=== PATIENT | female | born 1930 | race Caucasian/White ===

== ENCOUNTER 2018-07-09 12:02 | Inpatient (IN) | payer MEDICARE, MEDICAID ==
--- NOTE | 2018-07-09 12:32 | ED ---
Shortness of Breath - HPI Summary HPI Summary: This patient is an 87 year old female presenting to [facility] with a chief complaint of SOB since yesterday. The patient states she currently has a cold and is congested. She reports coughing all night, producing a yellow sputum. The patient uses Oxygen at home. She reports chest pressure. She rates her pain 3/10 in severity. Albuterol HFA INHALER* [Ventolin HFA Inhaler*] 1 puff INH SEE INSTRUCTIONS PRN 05/08/18 [History Confirmed 05/08/18] Amlodipine Besylate [Norvasc] 10 mg PO DAILY 05/08/18 [History Confirmed ] Atorvastatin* [Lipitor 20 MG*] 20 mg PO DAILY 05/08/18 [History Confirmed ] Atorvastatin* [Lipitor 40 MG*] 40 mg PO 2100 05/08/18 [History Confirmed ] Biotin 5,000 mcg PO DAILY 05/08/18 [History Confirmed 05/08/18] Calcium Carbonate/Vitamin D3 [Calcium 600 + Vit D Tablet] 1 each PO DAILY [History Confirmed 05/08/18] Cholecalciferol (Vitamin D3) [Vitamin D3] 1,000 unit PO DAILY 05/08/18 [History Confirmed 05/08/18] Citalopram TAB* [Celexa TAB*] 20 mg PO DAILY 05/08/18 [History Confirmed ] Docusate Sodium [Dok] 100 mg PO BID 05/08/18 [History Confirmed 05/08/18] Hydrocodone/Acetaminophen [Hydrocodone-Acetamin 7.5-300] 1 each PO Q6HR [History Confirmed 05/08/18] Isosorbide Mononitrate [Isosorbide Mononitrate ER] 30 mg PO DAILY 05/08/18 [ History Confirmed 05/08/18] Magnesium Oxide [Magnesium] 250 mg PO DAILY 05/08/18 [History Confirmed 05/08/18 ] Metoprolol Succinate 50 mg PO DAILY 05/08/18 [History Confirmed 05/08/18] Nortriptyline CAP* [Nortriptylline CAP*] 10 mg PO BEDTIME 05/08/18 [History Confirmed 05/08/18] Pantoprazole TAB (NF) [Protonix TAB (NF)] 20 mg PO DAILY 05/08/18 [History Confirmed 05/08/18] Potassium Chloride [K-Tab ER] 10 meq PO DAILY 05/08/18 [History Confirmed ] Tiotropium [place] [Spiriva Respimat] 1 puff PO SEE INSTRUCTIONS PRN 05/08/18 [ History Confirmed 05/08/18] - History of Current Complaint Chief Complaint: EDShortnessOfBreath Time Seen by Provider: 07/09/18 12:26 Hx Obtained From: Patient Onset/Duration: Gradual Onset Associated Signs & Symptoms: Cough (Productive), Nasal Congestion - Allergy/Home Medications Allergies/Adverse Reactions: Allergies Allergy/AdvReac Type Severity Reaction Status Date / Time No Known Allergies Allergy Verified 05/08/18 09:55 Home Medications: Home Medications Citalopram TAB* [CeleXA TAB*] 20 mg PO DAILY 07/09/18 [History Confirmed ] Isosorbide Mononitrate ER TAB* [Imdur ER TAB*] 30 mg PO DAILY 07/09/18 [History Confirmed 07/09/18] Metoprolol Succinate XL TAB* [Toprol XL TAB*] 50 mg PO DAILY 07/09/18 [History Confirmed 07/09/18] Nortriptyline CAP* [Pamelor CAP*] 10 mg PO BEDTIME 07/09/18 [History Confirmed 07/09/18] Potassium Chlor TAB* [Klor Con ER TAB*] 10 meq PO DAILY 07/09/18 [History Confirmed 07/09/18] amLODIPine TAB* [Norvasc 5 mg TAB*] 10 mg PO DAILY 07/09/18 [History Confirmed 07/09/18] PMH/Surg Hx/FS Hx/Imm Hx Cardiovascular History: Reports: Hx Hypertension Respiratory History: Reports: Hx Asthma, Hx Pneumonia Infectious Disease History: No Infectious Disease History: Denies: Traveled Outside the [place] in Last 30 Days - Family History Known Family History: Positive: Cardiac Disease - Social History Alcohol Use: None Smoking Status (MU): Former Smoker Review of Systems Positive: Nasal Discharge Positive: Chest Pain Positive: Shortness Of Breath, Cough All Other Systems Reviewed And Are Negative: Yes Physical Exam - Summary Physical Exam Summary: Appearance: The patient is well-nourished in no acute distress and in no acute pain. Skin: The skin is warm and dry and skin color reflects adequate perfusion. HEENT: The head is normocephalic and atraumatic. The pupils are equal and reactive. The conjunctivae are clear and without drainage. Nares are patent and without drainage. Mouth reveals moist mucous membranes and the throat is without erythema and exudate. The external ears are intact. The ear canals are patent and without drainage. The tympanic membranes are intact. Neck: The neck is supple with full range of motion and non-tender. There are no carotid bruits. There is no neck vein distension. Respiratory: Chest is non-tender. Expiratory wheezes in all lung shipley. Increased expiratory time. Cardiovascular: Heart is regular rate and rhythm. Soft ejection systolic murmur. There is no peripheral edema and pulses are symmetrical and equal. Abdomen: The abdomen is soft and non-tender. There are normal bowel sounds heard in all four quadrants and there is no organomegaly palpated. Musculoskeletal: There is no back tenderness noted. Extremities are non-tender with full range of motion. There is good capillary refill. There is no peripheral edema or calf tenderness elicited. Neurological: Patient is alert and oriented to person, place and time. The patient has symmetrical motor strength in all four extremities. Cranial nerves are grossly intact. Deep tendon reflexes are symmetrical and equal in all four extremities. Psychiatric: The patient has an appropriate affect and does not exhibit any anxiety or depression. Triage Information Reviewed: Yes Vital Signs On Initial Exam: Initial Vitals Temp Pulse Resp BP Pulse Ox 97.8 F 70 18 173/89 98 07/09/18 12:02 07/09/18 12:02 07/09/18 12:02 07/09/18 12:02 07/09/18 12:02 Vital Signs Reviewed: Yes Diagnostics - Vital Signs Vital Signs Temp Pulse Resp BP Pulse Ox 07/09/18 12:02 97.8 F 70 18 173/89 98 - Laboratory Result Diagrams: 07/09/18 12:43 07/09/18 16:27 Lab Statement: Any lab studies that have been ordered have been reviewed, and results considered in the medical decision making process. - Radiology CXR Radiology Interpretation Completed By: Radiologist Summary of Radiographic Findings: Probable bronchopneumonia superimposed on chronic obstructive pulmonary disease. ED Provider has reviewed this report. - EKG 1209 Cardiac Rate: NL EKG Rhythm: Sinus Rhythm - 75 BPM Ectopy: PVCs Summary of EKG Findings: Controlled ventricular response. 1247 Cardiac Rate: NL EKG Rhythm: Atrial Fibrillation - 67 BPM Ectopy: PVCs Summary of EKG Findings: Controlled ventricular response. PVCs. Course/Dx - Course Course Of Treatment: Ms. Sumner presented complaining that for the last couple of days she's been coughing a lot bringing up some yellow sputum. She short of breath with any attempt to exert. She feels okay lying in bed on oxygen. She did get a nebulizer treatment on the way in and she uses nebulizers at home as well as oxygen. She was nontoxic in appearance with stable vitals and was treated with additional nebulizer and steroids. I did give her a little bit of Lasix as she had a small amount of JVD and a mildly elevated BNP. On re-eval she states that she is not any better and needs to stay in the hospital. I asked the hospitalist to consult on her. - Diagnoses Provider Diagnoses: Respiratory distress - Physician Notifications Discussed Care of Patient With: Clarita Thornton - Hospitalist Instructed by Provider To: Admit As Inpatient Discharge - Sign-Out/Discharge Documenting (check all that apply): Patient Departure - Admission - Discharge Plan Condition: Stable Disposition: ADMITTED TO [facility] - Billing Disposition and Condition Condition: STABLE Disposition: Admitted to [facility] - Attestation Statements Document Initiated by Jacqueline: Yes Documenting Scribe: Valdo Yang Provider For Whom Jacqueline is Documenting (Include Credential): MD Harpreet Nickibfilippo Attestation: Valdo Lowe scribed for Harsh Rios MD on 07/09/18 at 1954. Scribe Documentation Reviewed: Yes Provider Attestation: The documentation as recorded by the Valdo henderson accurately reflects the service I personally performed and the decisions made by me, Harsh Rios MD Status of Scribe Document: Viewed
[2018-07-09] MEDS ORDERED: methylPREDNISolone 125 MG* 2 ML VIAL IV ONE (12:34)
[2018-07-09] MEDS ORDERED: Albuterol/Ipratropium NEB.SOL* Albuterol 2.5 MG/Ipratropium 0.5 MG 3 ML INH ONE (12:34)
[2018-07-09] MEDS ORDERED: NIFEdipine ER TAB* 30 MG PO ONE (13:07)
[2018-07-09] MEDS ORDERED: Metoprolol Succinate XL TAB* 50 MG PO ONE (13:07)
[2018-07-09 13:11] LABS: ABS Eosinophils 0.1 10^3/ul (0-0.6); ABS Lymphocytes 0.8 10^3/ul (1.0-4.8); ABS Neutrophils 3.3 10^3/ul (1.5-7.7); Eosinophil % 2.5 %; Hematocrit 36 % (35-47); Hemoglobin 11.9 g/dL (12.0-16.0); Lymphocyte % 15.6 %; Mean Corpuscular HGB Conc 33 g/dL (31-36); Mean Corpuscular Hemoglobin 30 pg (27-31); Mean Corpuscular Volume 92 fL (80-97); Mean Platelet Volume 7.2 fL (7.4-10.4); Platelet Count 160 10^3/uL (150-450); Red Blood Count 3.97 10^6 /uL (3.70-4.87); Red Cell Distribution Width 14 % (10.5-15); White Blood Count 5.2 10^3/uL (3.5-10.8)
[2018-07-09 13:20] LABS: INR 1.06 (0.82-1.09)
[2018-07-09 13:26] LABS: Troponin I 0.01 ng/mL (<0.04)
[2018-07-09 13:33] LABS: Albumin 4.3 g/dL (3.2-5.2); Albumin/Globulin Ratio 1.4 (1-3); BUN/Creatinine Ratio 17.2 (8-20); C Reactive Protein 5.13 mg/L (<8.01); Calcium 10.2 mg/dL (8.6-10.3); EGFR African American 64.2 (>60); EGFR Non-African American 53.1 (>60); Potassium 3.8 mmol/L (3.5-5.0); Total Bilirubin 0.5 mg/dL (0.2-1.0); Total Protein 7.3 g/dL (6.4-8.9)
[2018-07-09] MEDS ORDERED: Furosemide IV* 10 MG/ML 2 ML VIAL (20 MG) IV SLOW PU ONE (13:39)
[2018-07-09] MEDS ORDERED: Albuterol/Ipratropium NEB.SOL* Albuterol 2.5 MG/Ipratropium 0.5 MG 3 ML INH PRN (16:07)
[2018-07-09] MEDS ORDERED: Acetaminophen TAB* 325 MG PO PRN ×2 (16:07→17:43)
[2018-07-09 16:08] LABS: Magnesium 1.7 mg/dL (1.9-2.7)
[2018-07-09] MEDS ORDERED: Magnesium Sulfate 2 GM IV* 2 GM/50 ML BAG IVPB ONE (16:11)
[2018-07-09] MEDS: Enoxaparin(*) 40 MG/0.4 ML SYR SUBCUT SCH (16:40)
[2018-07-09 16:57] LABS: BUN/Creatinine Ratio 15.8 (8-20); Calcium 10.3 mg/dL (8.6-10.3); EGFR African American 54.6 (>60); EGFR Non-African American 45.1 (>60); Magnesium 1.6 mg/dL (1.9-2.7); Potassium 3.5 mmol/L (3.5-5.0)
[2018-07-09 17:31] LABS: Folate 12.82 ng/mL (>3.99)
[2018-07-09] MEDS ORDERED: Potassium Chlor TAB* 20 MEQ TAB.ER PO ONE (17:40)
--- NOTE | 2018-07-09 19:21 | HP ---
CC: Dr. Irma Garcia; Carlos Ortiz NP * HISTORY AND PHYSICAL: DATE OF ADMISSION: 07/09/18 PRIMARY CARE PROVIDERS: Dr. Irma Garcia and Carlos Ortiz NP HEALTHCARE PROXY: Elizabeth, her daughter, cellphone [phone], home [phone]. CODE STATUS: Full code. CHIEF COMPLAINT: Acute shortness of breath and cough. HISTORY OF PRESENT ILLNESS: Ms. Sumner is an 87-year-old woman with a history of COPD, on home O2 at 3 L; heart failure; CAD/TN without intervention; anxiety and depression; and recent right hip hemiarthroplasty with right total knee replacement, with periprosthetic fracture of her right distal femur; who is presenting with acute onset of cough and shortness of breath. She reports that she was in her usual state of poor health with baseline dyspnea on exertion, but able to walk with a walker from room to room in her home, until last night when she began to experience a cough productive of thick sputum. She states that the cough was persistent and associated with worsening shortness of breath at rest. Her exercise tolerance decreased to a few steps before needing to stop. This shortness of breath was associated with a chest pressure across the entire front of her chest that radiated to the front of both of her shoulders. She also reports a subjective fever, although she did not measure her temperature at home, and she also reports having chills, but no diaphoresis. She denies recent upper respiratory infectious symptoms such as sore throat or sneezing. She also denies any recent sick contacts. She denies abdominal pain, nausea, vomiting, constipation, diarrhea, or dysuria. Of note, the patient reports history of needing to use a water pill, although she states that she has not been on a water pill for many weeks. It is unclear if she has a history of heart failure, although she does report history of a heart attack with "" bottom of her heart. In the emergency room, the patient was afebrile with heart rate in the 70s and normal blood pressure with oxygen requirements at baseline, noted to be saturating upper 90s on her home 3 L nasal cannula. Chest x-ray was performed and while Radiology was concerned for broncho-lobar pneumonia, ER attending read was more concerned for increased fluid, so the patient was given nebulizers , furosemide 20 mg IV, methylprednisolone 125 mg IV. It appears she was also given metoprolol and nifedipine. She had continued significant dyspnea on exertion, so the hospitalist service was called for a possible admission to the medical service for further management. PAST MEDICAL HISTORY: 1. Coronary artery disease, history of TN in unknown year without stent or other intervention. The patient's daughter reports the "bottom of her heart is ." Possible ischemic cardiomyopathy with reduced ejection fraction. 2. COPD, on 3 L nasal cannula at home. 3. Anxiety and depression. 4. A fall in October 2017 with subsequent broken hip and distal femur, now status post right hip hemiarthroplasty, right knee total knee replacement, with periprosthetic fracture of the right distal femur. This occurred when she was living in [place]. 5. Fall complicated by right hip pubic rami fracture on 05/27/18, nondisplaced , not requiring surgery, will be weightbearing as tolerated with a walker. The patient is following with Dr. Adkins. 6. Hypertension. 7. Chronic low back pain. 8. Psoriasis. 9. Polypharmacy HOME MEDICATIONS: 1. Nortriptyline 10 mg nightly. 2. Metoprolol succinate 50 mg daily. 3. Atorvastatin 40 mg nightly. 4. Amlodipine 10 mg nightly. 5. Potassium chloride 10 mEq daily. 6. Isosorbide 30 mg daily. 7. Pantoprazole 20 mg daily. 8. Citalopram 20 mg daily. Furosemide and inhalers are noted in her outpatient notes but patient is unaware. ALLERGIES: No known drug allergies. FAMILY HISTORY: Both parents with heart disease. Mother with stroke. SOCIAL HISTORY: The patient quit tobacco in 2003. She has a [id number] smoking history. She denies alcohol or other drugs. She used to work at [employer], but is now retired. She lives with her daughter, Elizabeth, who is her power of employee benefits attorney, and her son-in-law. REVIEW OF SYSTEMS: A complete 10-point review of systems was performed and pertinent positives and negatives are listed in the HPI. PHYSICAL EXAMINATION GENERAL: Chronically ill-appearing, frail elderly woman, in no acute distress, without increased work of breathing. VITAL SIGNS: T-max 99.5, heart rate 70s, blood pressure 161/67, respiratory rate 12, oxygen saturation 95% on 2 L. HEENT: Moist mucous membranes. NECK: Supple. Full range of motion without pain. No JVD. LUNGS: Diffuse wheeze with crackles at both bases, prolonged expiratory phase. HEART: Regular rate and rhythm. No murmurs, gallops, or rubs. ABDOMEN: Soft, nontender, nondistended. EXTREMITIES: Lower extremities warm and well perfused without evidence of edema. DP pulses 2+ bilaterally. NEURO: A and O x3. 5/5 strength in the upper and lower extremities. CN II through XII intact. DIAGNOSTIC STUDIES/LAB DATA: Hemoglobin 11.9, normocytic at baseline. Creatinine 1.14, at baseline. BNP 709. B12 and folate are pending. Chest x-ray with probable bronchopneumonia superimposed on chronic obstructive pulmonary disease. ASSESSMENT AND PLAN: The patient is an 87-year-old woman with chronic obstructive pulmonary disease, on home O2; coronary artery disease with possible ischemic cardiomyopathy and reduced ejection fraction; anxiety and depression; who is presenting with acute onset of dyspnea on exertion, shortness of breath at rest, and productive cough. 1. Chronic obstructive pulmonary disease exacerbation. With increased cough, HONG, and sputum production. The patient is not currently requiring more oxygen than her home supplements. As she is without a fever or white blood cell count , I do not think that a bacterial pneumonia is the cause of her CPPD exacerbation. For treatment of this exacerbation, she will be continued on a steroid burst, but we will switch to oral steroids. Continue DuoNebs as needed for shortness of breath and can switch to albuterol nebulizer tomorrow. The patient denies being on inhalers at home, so medication nonadherence could be the cause of this exacerbation. In an outpatient note from last month, she was prescribed Incruse Ellipta, Breo Ellipta, and Spiriva. I will continue triple therapy while she is admitted with Breo Ellipta and Spiriva. Although infection is lower on my differential, I have also ordered blood and sputum cultures, urine antigens for legionella and Strep pneumo, and a procalcitonin. Low suspicion at this time for pulmonary embolism, but given the patient's recent lower extremity fracture, this should also remain on the differential at this time. We will order TTE to examine for volume component to respiratory symptoms. 2. Coronary artery disease with possible ICM. We will continue the patient's home atorvastatin 40 mg. We will hold the patient's home 20 mg of atorvastatin. Unclear why she is on 2 different pills and the patient does not know. Again concern for polypharmacy and medication mismanagement in this patient. Can continue metoprolol succinate 50 mg daily and isosorbide mononitrate 30 mg p.o. daily. We will order a TTE to assess for heart failure given history of being on diuretics. Of note, the patient is status post furosemide 20 IV in the emergency department. 3. Recent right hip and knee replacements with recent pubic rami fracture after falls. We will manage the patient's pain with high-dose Tylenol for mild pain and [place] for [id number] pain. Also, we will order physical therapy evaluation. 4. Anxiety and depression. We will continue the patient's home citalopram 20 mg daily and nortriptyline 10 mg nightly. 5. Hypertension. Continue home amlodipine 10 mg nightly. 6. Gastroesophageal reflux disease. Continue home PPI. 7. DVT prophylaxis: Initiate Lovenox subcu. 8. Code status: The patient is a full code. TIME SPENT: Approximately 75 minutes was spent on admission of this patient, more than half of which was spent at bedside for interview and exam. [id number]/[facility] #: [id number] AGATHA
[2018-07-09] MEDS ORDERED: Magnesium Sulfate 1 GM IV* 1 GM/100 ML BAG IV ONE (19:30)
[2018-07-09] MEDS: Fluticasone/Vilanterol MDI(NF) 100/25 MDI INH SCH (20:08)
[2018-07-09] MEDS: Nortriptyline CAP* 10 MG PO SCH (20:55)
[2018-07-09] MEDS: HYDROcodone/ACETAMIN 5-325 MG* 1 TAB PO PRN (20:55)
[2018-07-10 05:57] LABS: ABS Lymphocytes 0.8 10^3/ul (1.0-4.8); ABS Monocytes 0.4 10^3/ul (0-0.8); ABS Neutrophils 2.7 10^3/ul (1.5-7.7); Hematocrit 36 % (35-47); Lymphocyte % 19.4 %; Mean Corpuscular HGB Conc 34 g/dL (31-36); Mean Corpuscular Hemoglobin 30 pg (27-31); Mean Corpuscular Volume 90 fL (80-97); Mean Platelet Volume 7.3 fL (7.4-10.4); Platelet Count 162 10^3/uL (150-450); Red Blood Count 3.94 10^6 /uL (3.70-4.87); Red Cell Distribution Width 14 % (10.5-15); White Blood Count 3.9 10^3/uL (3.5-10.8)
[2018-07-10 06:17] LABS: BUN/Creatinine Ratio 21.1 (8-20); Calcium 10.2 mg/dL (8.6-10.3); EGFR African American 67.3 (>60); EGFR Non-African American 55.6 (>60); Magnesium 2.2 mg/dL (1.9-2.7); Potassium 4.5 mmol/L (3.5-5.0)
--- NOTE | 2018-07-10 07:24 | PN ---
Subjective Date of Service: 07/10/18 Interval History: HD # 2 on 07/10 87 yo F COPD, CAD, ischemic cardiomyopathy, HfREF 35-45%, anxiety , depression, with recent falls and fracture (relocated from [place] in Nov 2017) who presented with SOB Overnight no acute events, VSS, mild HTN Labs: Unremarkable 07/10 This morning feeling fatigued, still SOB and HONG. Discussed dx, HFrEF, COPD, she is fairly self aware and does not yet feel back at her baseline. No CP, no dizziness, appetite Ok and voiding normally. We spend some time to discuss GOC as well, she is clearly DNR/DNI "nothing heroic" and "when its my time I want to be with Rey" reviewed specifics clear on not reversing a natural process. Objective Active Medications: Acetaminophen (Tylenol Tab*) 975 mg PO Q8H PRN PRN Reason: FEVER/PAIN Hydrocodone Bitart/Acetaminophen ([place] 5-325 Tab*) 1 tab PO Q6H PRN PRN Reason: PAIN Last Admin: 07/09/18 20:55 Dose: 1 tab Albuterol/Ipratropium (Duoneb (Albuterol 2.5 Mg/Ipratropium 0.5 Mg)) 1 neb INH [id number] AWAKE PRN PRN Reason: sob/wheezing Amlodipine Besylate (Norvasc Tab*) 10 mg PO DAILY [facility] Atorvastatin Calcium (Lipitor*) 40 mg PO DAILY [facility] Citalopram Hydrobromide (Celexa Tab*) 20 mg PO DAILY [facility] Device (Tiotropium Inhaler Device*) 1 each INH .USE w/ SPIRIVA CAPS ONE Stop: 07/10/18 09:01 Enoxaparin Sodium (Lovenox(*)) 40 mg SUBCUT Q24H ALISHA Last Admin: 07/09/18 16:40 Dose: 40 mg Fluticasone/Vilanterol (Breo Ellipta Mdi 100/25(Nf)) 1 puff INH DAILY [facility] Last Admin: 07/09/18 20:08 Dose: Not Given Isosorbide Mononitrate (Imdur Er Tab*) 30 mg PO DAILY [facility] Metoprolol Succinate (Toprol Xl Tab*) 50 mg PO DAILY [facility] Nortriptyline HCl (Pamelor Cap*) 10 mg PO BEDTIME ALISHA Last Admin: 07/09/18 20:55 Dose: 10 mg Pantoprazole Sodium (Protonix Tab*) 40 mg PO DAILY [facility] Potassium Chloride (Klor Con Er Tab*) 10 meq PO DAILY [facility] Prednisone (Deltasone Tab*) 40 mg PO DAILY [facility] Stop: 07/13/18 09:01 Tiotropium [place] (Spiriva Cap.Inh*) 1 cap INH DAILY [facility] Vital Signs - 8 hr 07/09/18 07/09/18 07/10/18 23:18 23:33 04:17 Temperature 98.2 F 97.3 F Pulse Rate 67 63 Respiratory 20 16 16 Rate Blood Pressure 144/62 154/79 (mmHg) O2 Sat by Pulse 96 96 Oximetry Oxygen Devices in Use Now: Nasal Cannula Appearance: Pleasant woman in NAD Ears/Nose/Mouth/Throat: NL Teeth, Lips, Gums, Mucous Membranes Moist Neck: NL Appearance and Movements; NL JVP, Trachea Midline Respiratory: Symmetrical Chest Expansion and Respiratory Effort, - - Crackles blt in bases, E wheeze and rhonchi Cardiovascular: RRR, - - Diffuse ROB radiates to carotids across precodium Abdominal: NL Sounds; No Tenderness; No Distention, No Hepatosplenomegaly Lymphatic: No Cervical Adenopathy Extremities: No Edema Skin: No Rash or Ulcers Neurological: Alert and Oriented x 3 Result Diagrams: 07/10/18 05:29 07/10/18 05:29 Microbiology and Other Data: Microbiology 07/09/18 21:36 Legionella Urinary Antigen - Final Urine Negative Legionella Antigen Streptococcus pneumoniae Ag Screen - Final Negative S. pneumo Antigen Assess/Plan/Problems-Billing Assessment: 87F COPD on home O2 3L, CAD, ischemic cardiomyopathy, HFrEF, anxiety , depression, polypharmacy with recent falls/fracture with ortho intervention who presented with SOB thought to be COPD exacerbation and acute exacerbation of CHF - Patient Problems (1) Shortness of breath Current Visit: Yes Status: Acute Code(s): R06.02 - SHORTNESS OF BREATH SNOMED Code(s): 933369457 Comment: - Ddx as above, seems most c/w mixed acute on chronic CHF and COPD exacerbation, though radiograph suggests ? consolidation, no WBC, no fever, not clinically requiring more than her baselien O2 needs procalcitonin pending. - Awaiting TTE to determine EF with known hx of CAD - Continue treatment for COPD exacerbation with triple therapy LAMA, LABA, ICS and PRN CECILE, also oral prednisone Day 2/5 on 07/10 - Continue diuresis while awaiting TTE, 20mg IV Lasix daily, will need to be d/ c on PO - Holding on abx (2) COPD (chronic obstructive pulmonary disease) Current Visit: Yes Status: Acute Code(s): J44.9 - CHRONIC OBSTRUCTIVE PULMONARY DISEASE, UNSPECIFIED SNOMED Code(s): 95922922 Comment: - Baseline requiring O2 - Rx inhalers from clinic (3) CAD (coronary artery disease) Current Visit: Yes Status: Acute Code(s): I25.10 - ATHSCL HEART DISEASE OF [place] CORONARY ARTERY W/O ANG PCTRS SNOMED Code(s): 66019343 Comment: - Known hx of CAD - Optimized on 2/2 prevention, statin, beta jared, not on Asa(?) unclear why not (4) Ischemic cardiomyopathy Current Visit: Yes Status: Acute Code(s): I25.5 - ISCHEMIC CARDIOMYOPATHY SNOMED Code(s): 481057925 Comment: - Statin, BB, also on isordil (5) Hypertension Current Visit: Yes Status: Acute Code(s): I10 - ESSENTIAL (PRIMARY) HYPERTENSION SNOMED Code(s): 72856413 Comment: - Continue home meds: Isordil, Amlodipine, Metoprolol (6) Anxiety Current Visit: Yes Status: Acute Code(s): F41.9 - ANXIETY DISORDER, UNSPECIFIED SNOMED Code(s): 63086900 Comment: - Nortptyline (7) DVT prophylaxis Current Visit: Yes Status: Acute Code(s): Z29.9 - ENCOUNTER FOR PROPHYLACTIC MEASURES, UNSPECIFIED SNOMED Code(s): 120817494 Comment: - Lovenox (8) Do not resuscitate Current Visit: Yes Status: Acute Status and Disposition: -Inpatient, PT pending
[2018-07-10] MEDS: Isosorbide Mononitrate ER TAB* 30 MG PO SCH (07:33)
[2018-07-10] MEDS: Atorvastatin* 40 MG TAB PO SCH (07:33)
[2018-07-10] MEDS: Pantoprazole TAB * 40 MG TAB PO SCH (07:33)
[2018-07-10] MEDS: Citalopram TAB* 20 MG PO SCH (07:34)
[2018-07-10] MEDS: predniSONE TAB* 20 MG PO SCH (07:34)
[2018-07-10] MEDS: Potassium Chlor TAB* 10 MEQ TAB.ER PO SCH (07:34)
[2018-07-10] MEDS: Metoprolol Succinate XL TAB* 50 MG PO SCH (07:34)
[2018-07-10] MEDS: amLODIPine TAB* 5 MG PO SCH (07:34)
[2018-07-10] MEDS ORDERED: Spiriva Inhaler DEVICE* 1 EACH DEVICE INH ONE (09:00)
[2018-07-10] MEDS: Tiotropium CAP.INH* CAP.INH/18 MCG (USE ORDER SET !) INH SCH (10:23)
[2018-07-10] MEDS: Fluticasone/Vilanterol MDI(NF) 100/25 MDI INH SCH (10:40)
[2018-07-10] MEDS: Furosemide IV* 10 MG/ML 2 ML VIAL (20 MG) IV SLOW PU SCH (12:39)
--- NOTE | 2018-07-10 15:40 | ECHO ---
*[facility]* [place] [address] Fax #: [phone] Transthoracic Echocardiogram Patient: Burak, Height: 63 in / 160 Crystal felder : 1930 Weight: 118.8 lb / Study Date: 07/10/2018 54 kg Age: 87 BP: 154 / 79 Gender: F BMI/BSA: 21.1 kg/m^2 HR: 75 bpm / 1.55 m^2 *Investigation Division Captain: * Katherine Gamez [facility] *Referring Physician: * Clarita Thornton *Reading Physician: * Zenaida Thibodeaux MD Indications: Resp Insufficiency. History: Coronary artery disease. PMH: COPD exacerbation. Risk factors: Former tobacco use. Hypertension. Hyperlipidemia. Conclusions Summary: 1. Procedure narrative: Image quality was fair. The study was technically limited due to chest wall deformity. 2. Left ventricle: The cavity size is below normal. Wall thickness is normal. Systolic function is moderately reduced. The estimated ejection fraction is 35-40%, by visual assessment. There is interventricular dyssynchrony and D shaped left ventricle c/w right ventricle overload. 3. Right ventricle: Systolic function is low normal. 4. Mitral valve: The findings are consistent with mild stenosis. There is mild regurgitation. The pressure half-time is 162 ms. The mean diastolic gradient is 3.0 mm Hg. The valve area by pressure half-time is 1.4 cm^2. The valve area (LVOT continuity) is 2.2 cm^2. 5. Aortic valve: The findings are consistent with mild to moderate stenosis, STEVE may be overestimated due to depressed ejection fraction. The peak systolic gradient is 14.0 mm Hg. The valve area by the velocity-time integral method is 1.34 cm^2. 6. Tricuspid valve: There is mild regurgitation. 7. Pulmonary arteries: The peak pressure during systole by Doppler is 24.0 mm Hg. 8. Compared with prior echocardiogram of 04/30/18, ejection fraction is stale, right ventricle function is stable, stable, prior mean gradient 13 mHg, STEVE 1.5 cm2, mitral stenosis noted on prior study, mean gradient 3.6 mmHg. Prior pulmonary artery pressure was 46 mmHg. Study data: Transthoracic echocardiogram. Procedure: Transthoracic echocardiography was performed. Image quality was fair. The study was technically limited due to chest wall deformity. Complete 2D, spectral Doppler, and color flow Doppler. Location: Echo laboratory. Patient status: Inpatient. Patient room number: 434. Rhythm: Normal sinus rhythm with PVC's. Findings Left ventricle: The cavity size is below normal. Wall thickness is normal. Systolic function is moderately reduced. The estimated ejection fraction is 35-40%, by visual assessment. There is interventricular dyssynchrony. Regional wall motion abnormalities: Moderate to severe global hypokinesis. Doppler parameters are consistent with abnormal left ventricular relaxation (grade 1 diastolic dysfunction). Right ventricle: The cavity size is normal. Wall thickness is mildly increased. The moderator band is in a normal position. Systolic function is low normal. Left atrium: The atrium is mildly dilated. Right atrium: The atrium is normal in size. Mitral valve: The leaflets are mildly thickened. Focal calcification. Of posterior annulus. The findings are consistent with mild stenosis. There is mild regurgitation. Aortic valve: Not well visualized. The valve is trileaflet. The findings are consistent with mild to moderate stenosis. There is trace regurgitation. Tricuspid valve: The leaflets are normal thickness. There is no evidence of stenosis. There is mild regurgitation. Pulmonic valve: The leaflets are normal thickness. There is no evidence of stenosis. There is trace regurgitation. Aorta: Ascending aorta: The ascending aorta is appears normal. Aortic arch: The aortic arch is appears normal. The aortic root is not dilated. Pericardium: A prominent pericardial fat pad is present. There is no pericardial effusion. Pulmonary arteries: Not well visualized. Systemic veins: Inferior vena cava: The vessel is normal in size. The respirophasic diameter changes are in the normal range (>= 50%). Measurements Left ventricle Value Ref Aortic valve Value Ref BRANDON, LAX (L) 3.0 cm 3.8 - 5.2 Tee diam, ED 1.9 cm ----- ESD, LAX 2.8 cm 2.2 - 3.5 Peak v, S 2.44 m/sec ----- FS, LAX (L) 6 % 27 - 45 VTI, S 46.7 cm ----- PW, ED, LAX 0.9 cm 0.6 - 0.9 Mean grad, S 14.0 mm Hg ----- FS (L) 6 % 27 - 45 Peak grad, S 14.0 mm Hg ----- PW, ED 0.9 cm 0.6 - 0.9 LVOT/AV, VTI ratio 0.43 ----- E', lat tee, TDI (L) 6.0 cm/sec >=10.0 STEVE, VTI 1.34 cm^2 --- -- E/e', lat tee, 13 STEVE, Vmax 1.33 cm^2 ----- TDI E', med tee, TDI (L) 5.3 cm/sec >=7.0 Mitral valve Value Ref E/e', med tee, 15 Peak E 0.79 m/sec ----- TDI Peak A 1.17 m/sec ----- E', avg, TDI 5.7 cm/sec Decel time 229 ms ----- E/e', avg, TDI 14 <=14 PHT 162 ms --- -- Mean grad, D 3.0 mm Hg ----- LVOT Value Ref Peak grad, D 6.0 mm Hg ----- Diam, S 2.00 cm Peak E/A ratio 0.7 ----- Area 3.1 cm^2 MVA, PHT 1.4 cm^2 ----- Peak rebecca, S 1.03 m/sec VTI, S 20.0 cm Pulmonic valve Value Ref Mean grad, S 2 mm Hg Peak v, S 0.95 m/sec ----- SV 64 ml Peak grad, S 4.0 mm Hg ----- SV/bsa 41 ml/m^2 Tricuspid valve Value Ref Ventricular septum Value Ref TR peak v 2.5 m/sec <=2.8 IVS, ED (H) 1.0 cm 0.6 - 0.9 Peak RV-RA grad, S 25 mm Hg ----- Right ventricle Value Ref Aortic root Value Ref AW thickness, ED (H) 0.6 cm 0.1 - 0.5 Root diam 2.5 cm <3.8 BRANDON, LAX 3.3 cm BRANDON minor ax, A4C (H) 4.0 cm 1.9 - 3.5 Ascending aorta Value Ref mid AAo AP diam, S 3.3 cm ----- Pressure, S 28 mm Hg Aortic arch Value Ref Left atrium Value Ref Arch diam 2.0 cm ----- AP dim, ES 3.40 cm 2.70 - 3.80 Decending aorta Value Ref ML dim, A4C 3.7 cm David peak rebecca 0.44 m/sec ----- SI dim, A4C 4.5 cm Vol/bsa, ES, 1-p 17 ml/m^2 11 - 40 Pulmonary artery Value Ref A4C Pressure, S 24.0 mm Hg ----- Vol/bsa, ES, A/L (H) 36 ml/m^2 16 - 34 Inferior vena cava Value Ref Right atrium Value Ref Diam 1.2 cm ----- SI dim, ES 4.2 cm 3.4 - 5.3 ML dim, ES, A4C 3.2 cm 2.6 - 4.4 SI dim, ES, A4C 4.2 cm 3.4 - 5.3 SI dim/bsa, ES, 2.7 cm/m^2 1.9 - 3.1 A4C Estimated RAP 3 mm Hg Legend: (L) and (H) driss values outside specified reference range. Prepared and electronically signed by Zenaida Thibodeaux MD 07/10/2018 15:39
[2018-07-10] MEDS: Enoxaparin(*) 40 MG/0.4 ML SYR SUBCUT SCH (16:08)
[2018-07-10] MEDS: HYDROcodone/ACETAMIN 5-325 MG* 1 TAB PO PRN (20:30)
[2018-07-10] MEDS: Nortriptyline CAP* 10 MG PO SCH (20:30)
[2018-07-11 06:05] LABS: ABS Lymphocytes 1.7 10^3/ul (1.0-4.8); ABS Monocytes 1.2 10^3/ul (0-0.8); ABS Neutrophils 6.1 10^3/ul (1.5-7.7); Eosinophil % 0.2 %; Hematocrit 35 % (35-47); Hemoglobin 11.9 g/dL (12.0-16.0); Lymphocyte % 18.9 %; Mean Corpuscular HGB Conc 34 g/dL (31-36); Mean Corpuscular Hemoglobin 31 pg (27-31); Mean Corpuscular Volume 90 fL (80-97); Mean Platelet Volume 7.6 fL (7.4-10.4); Platelet Count 202 10^3/uL (150-450); Red Cell Distribution Width 14 % (10.5-15)
[2018-07-11 06:27] LABS: BUN/Creatinine Ratio 27.9 (8-20); Calcium 9.8 mg/dL (8.6-10.3); EGFR African American 50.4 (>60); EGFR Non-African American 41.7 (>60); Potassium 4.4 mmol/L (3.5-5.0)
[2018-07-11] MEDS: Pantoprazole TAB * 40 MG TAB PO SCH (07:41)
[2018-07-11] MEDS: amLODIPine TAB* 5 MG PO SCH (07:41)
[2018-07-11] MEDS: Metoprolol Succinate XL TAB* 50 MG PO SCH (07:41)
[2018-07-11] MEDS: Potassium Chlor TAB* 10 MEQ TAB.ER PO SCH (07:41)
[2018-07-11] MEDS: Atorvastatin* 40 MG TAB PO SCH (07:41)
[2018-07-11] MEDS: predniSONE TAB* 20 MG PO SCH (07:41)
[2018-07-11] MEDS: Furosemide IV* 10 MG/ML 2 ML VIAL (20 MG) IV SLOW PU SCH (07:41)
[2018-07-11] MEDS: Isosorbide Mononitrate ER TAB* 30 MG PO SCH (07:41)
[2018-07-11] MEDS: Citalopram TAB* 20 MG PO SCH (07:41)
[2018-07-11] MEDS: HYDROcodone/ACETAMIN 5-325 MG* 1 TAB PO PRN ×2 (08:09→20:25)
[2018-07-11] MEDS: Polyethylene Glycol 3350* 17 GM PACKET PO PRN (08:09)
[2018-07-11] MEDS: Fluticasone/Vilanterol MDI(NF) 100/25 MDI INH SCH (08:40)
[2018-07-11] MEDS: Tiotropium CAP.INH* CAP.INH/18 MCG (USE ORDER SET !) INH SCH (09:02)
--- NOTE | 2018-07-11 15:57 | PN ---
Subjective Date of Service: 07/11/18 Interval History: Patient seen and examined. States she feels mild improvement today and can feel that she continues to wheeze though. Denies chest pain, no acute SOB, does endorse dyspnes with any mild exertion. No fevers or chills. Objective Active Medications: Acetaminophen (Tylenol Tab*) 975 mg PO Q8H PRN PRN Reason: FEVER/PAIN Hydrocodone Bitart/Acetaminophen ([place] 5-325 Tab*) 1 tab PO Q6H PRN PRN Reason: PAIN Last Admin: 07/11/18 08:09 Dose: 1 tab Albuterol/Ipratropium (Duoneb (Albuterol 2.5 Mg/Ipratropium 0.5 Mg)) 1 neb INH [id number] AWAKE PRN PRN Reason: sob/wheezing Amlodipine Besylate (Norvasc Tab*) 10 mg PO DAILY [facility] Last Admin: 07/11/18 07:41 Dose: 10 mg Atorvastatin Calcium (Lipitor*) 40 mg PO DAILY [facility] Last Admin: 07/11/18 07:41 Dose: 40 mg Citalopram Hydrobromide (Celexa Tab*) 20 mg PO DAILY [facility] Last Admin: 07/11/18 07:41 Dose: 20 mg Enoxaparin Sodium (Lovenox(*)) 40 mg SUBCUT Q24H [facility] Last Admin: 07/10/18 16:08 Dose: 40 mg Fluticasone/Vilanterol (Breo Ellipta Mdi 100/25(Nf)) 1 puff INH DAILY [facility] Last Admin: 07/11/18 08:40 Dose: Not Given Furosemide (Lasix Iv*) 20 mg IV SLOW PU DAILY [facility] Last Admin: 07/11/18 07:41 Dose: 20 mg Isosorbide Mononitrate (Imdur Er Tab*) 30 mg PO DAILY [facility] Last Admin: 07/11/18 07:41 Dose: 30 mg Metoprolol Succinate (Toprol Xl Tab*) 50 mg PO DAILY [facility] Last Admin: 07/11/18 07:41 Dose: 50 mg Nortriptyline HCl (Pamelor Cap*) 10 mg PO BEDTIME [facility] Last Admin: 07/10/18 20:30 Dose: 10 mg Pantoprazole Sodium (Protonix Tab*) 40 mg PO DAILY [facility] Last Admin: 07/11/18 07:41 Dose: 40 mg Polyethylene Glycol/Electrolytes (Miralax*) 17 gm PO DAILY PRN PRN Reason: CONSTIPATION Last Admin: 07/11/18 08:09 Dose: 17 gm Potassium Chloride (Klor Con Er Tab*) 10 meq PO DAILY [facility] Last Admin: 07/11/18 07:41 Dose: 10 meq Prednisone (Deltasone Tab*) 40 mg PO DAILY [facility] Stop: 07/13/18 09:01 Last Admin: 07/11/18 07:41 Dose: 40 mg Tiotropium [place] (Spiriva Cap.Inh*) 1 cap INH DAILY [facility] Last Admin: 07/11/18 09:02 Dose: 1 cap Vital Signs - 8 hr 07/11/18 07/11/18 07/11/18 08:09 08:13 09:03 Temperature 97.1 F Pulse Rate 64 78 Respiratory 16 18 16 Rate Blood Pressure 160/59 (mmHg) O2 Sat by Pulse 99 97 Oximetry 07/11/18 07/11/18 07/11/18 09:59 12:11 15:28 Temperature 97.6 F 97.5 F Pulse Rate 63 68 Respiratory 16 17 20 Rate Blood Pressure 138/59 133/70 (mmHg) O2 Sat by Pulse 98 96 Oximetry Oxygen Devices in Use Now: Nasal Cannula Appearance: alert, NAD Eyes: No Scleral Icterus, PERRLA Ears/Nose/Mouth/Throat: NL Teeth, Lips, Gums, Mucous Membranes Moist Neck: NL Appearance and Movements; NL JVP, Trachea Midline Respiratory: Symmetrical Chest Expansion and Respiratory Effort, - - bilateral expiratory wheeze, good air entry Cardiovascular: NL Sounds; No Murmurs; No JVD, RRR, No Edema Abdominal: NL Sounds; No Tenderness; No Distention Extremities: No Edema, No Clubbing, Cyanosis Skin: No Rash or Ulcers Neurological: Alert and Oriented x 3 Nutrition: Taking PO's Result Diagrams: 07/11/18 05:17 07/11/18 05:17 Microbiology and Other Data: Microbiology 07/09/18 21:36 Legionella Urinary Antigen - Final Urine Negative Legionella Antigen Streptococcus pneumoniae Ag Screen - Final Negative S. pneumo Antigen Diagnostic Imaging: *[facility]* [place] [address] Fax #: [phone] Transthoracic Echocardiogram Patient: Burak, Height: 63 in / 160 Crystal felder : 1930 Weight: 118.8 lb / Study Date: 07/10/2018 54 kg Age: 87 BP: 154 / 79 Gender: F BMI/BSA: 21.1 kg/m^2 HR: 75 bpm / 1.55 m^2 *Senior Systems Architect: * Katherine Gamez RD *Referring Physician: * Clarita Thornton *Reading Physician: * Zenaida Thibodeaux MD Indications: Resp Insufficiency. History: Coronary artery disease. PMH: COPD exacerbation. Risk factors: Former tobacco use. Hypertension. Hyperlipidemia. Conclusions Summary: 1. Procedure narrative: Image quality was fair. The study was technically limited due to chest wall deformity. 2. Left ventricle: The cavity size is below normal. Wall thickness is normal. Systolic function is moderately reduced. The estimated ejection fraction is 35-40%, by visual assessment. There is interventricular dyssynchrony and D shaped left ventricle c/w right ventricle overload. 3. Right ventricle: Systolic function is low normal. 4. Mitral valve: The findings are consistent with mild stenosis. There is mild regurgitation. The pressure half-time is 162 ms. The mean diastolic gradient is 3.0 mm Hg. The valve area by pressure half-time is 1.4 cm^2. The valve area (LVOT continuity) is 2.2 cm^2. 5. Aortic valve: The findings are consistent with mild to moderate stenosis, STEVE may be overestimated due to depressed ejection fraction. The peak systolic gradient is 14.0 mm Hg. The valve area by the velocity-time integral method is 1.34 cm^2. 6. Tricuspid valve: There is mild regurgitation. 7. Pulmonary arteries: The peak pressure during systole by Doppler is 24.0 mm Hg. 8. Compared with prior echocardiogram of 04/30/18, ejection fraction is stale, right ventricle function is stable, stable, prior mean gradient 13 mHg, STEVE 1.5 cm2, mitral stenosis noted on prior study, mean gradient 3.6 mmHg. Prior pulmonary artery pressure was 46 mmHg. Assess/Plan/Problems-Billing Assessment: This is an 87 year old female with history of COPD on home O2 3L, CAD, ischemic cardiomyopathy, HF, recent fall/fracturewho presented with SOB thought to be COPD exacerbation and acute exacerbation of CHF - Patient Problems (1) Shortness of breath Code(s): R06.02 - SHORTNESS OF BREATH SNOMED Code(s): 495740868 Comment: - Etiology likely mixed COPD exacerbation with acute on chronic systolic heart failure exacerbation - [id number] - Procalcitonin 0.14, not likely consolidation, no fever or or leukocytosis, no indication for atbx - continue diuresing, plan for DC on oral lasix - Continue nebs and inhalers, and day 3/5 prednisone (2) CAD (coronary artery disease) Code(s): I25.10 - ATHSCL HEART DISEASE OF [place] CORONARY ARTERY W/O ANG PCTRS SNOMED Code(s): 24536811 Comment: - Continue statin, beta jared - Not on ASA (3) COPD (chronic obstructive pulmonary disease) Code(s): J44.9 - CHRONIC OBSTRUCTIVE PULMONARY DISEASE, UNSPECIFIED SNOMED Code(s): 90642648 Comment: - continuous O2 at home (4) Hypertension Code(s): I10 - ESSENTIAL (PRIMARY) HYPERTENSION SNOMED Code(s): 86342264 Comment: - Stable on isordil, amlodipine, metoprolol (5) Ischemic cardiomyopathy Code(s): I25.5 - ISCHEMIC CARDIOMYOPATHY SNOMED Code(s): 024112170 Comment: - ECHO as above, chronic systolic heart failure, no acute changes on current ECHO - Continue BB and isordil (6) DVT prophylaxis Code(s): Z29.9 - ENCOUNTER FOR PROPHYLACTIC MEASURES, UNSPECIFIED SNOMED Code( s): 116152307 Comment: - Lovenox SQ (7) Do not resuscitate Status and Disposition: -Inpatient, dispo to home when medically optimized.
[2018-07-11] MEDS: Enoxaparin(*) 40 MG/0.4 ML SYR SUBCUT SCH (16:07)
[2018-07-11] MEDS: Nortriptyline CAP* 10 MG PO SCH (20:25)
[2018-07-12] MEDS: Fluticasone/Vilanterol MDI(NF) 100/25 MDI INH SCH (08:51)
[2018-07-12] MEDS: Isosorbide Mononitrate ER TAB* 30 MG PO SCH (08:52)
[2018-07-12] MEDS: Furosemide IV* 10 MG/ML 2 ML VIAL (20 MG) IV SLOW PU SCH (08:52)
[2018-07-12] MEDS: Pantoprazole TAB * 40 MG TAB PO SCH (08:53)
[2018-07-12] MEDS: Metoprolol Succinate XL TAB* 50 MG PO SCH (08:53)
[2018-07-12] MEDS: Citalopram TAB* 20 MG PO SCH (08:53)
[2018-07-12] MEDS: predniSONE TAB* 20 MG PO SCH (08:53)
[2018-07-12] MEDS: Potassium Chlor TAB* 10 MEQ TAB.ER PO SCH (08:53)
[2018-07-12] MEDS: amLODIPine TAB* 5 MG PO SCH (08:53)
[2018-07-12] MEDS: Atorvastatin* 40 MG TAB PO SCH (08:53)
[2018-07-12] MEDS: Tiotropium CAP.INH* CAP.INH/18 MCG (USE ORDER SET !) INH SCH (09:05)
[2018-07-12] MEDS: Enoxaparin(*) 30 MG/0.3 ML SYR SUBCUT SCH (16:25)
--- NOTE | 2018-07-12 17:45 | PN ---
Subjective Date of Service: 07/12/18 Interval History: Patient seen and examined. States her breathing feels improved today, was able to ambulate to the bathroom, still with dyspnea but not as severe. Denies chest pain. States she feels fatigue primarily. No further complaints. Objective Active Medications: Acetaminophen (Tylenol Tab*) 975 mg PO Q8H PRN PRN Reason: FEVER/PAIN Hydrocodone Bitart/Acetaminophen ([place] 5-325 Tab*) 1 tab PO Q6H PRN PRN Reason: PAIN Last Admin: 07/11/18 20:25 Dose: 1 tab Albuterol/Ipratropium (Duoneb (Albuterol 2.5 Mg/Ipratropium 0.5 Mg)) 1 neb INH [id number] AWAKE PRN PRN Reason: sob/wheezing Amlodipine Besylate (Norvasc Tab*) 10 mg PO DAILY [facility] Last Admin: 07/12/18 08:53 Dose: 10 mg Atorvastatin Calcium (Lipitor*) 40 mg PO DAILY [facility] Last Admin: 07/12/18 08:53 Dose: 40 mg Citalopram Hydrobromide (Celexa Tab*) 20 mg PO DAILY [facility] Last Admin: 07/12/18 08:53 Dose: 20 mg Enoxaparin Sodium (Lovenox(*)) 30 mg SUBCUT Q24H [facility] Last Admin: 07/12/18 16:25 Dose: 30 mg Fluticasone/Vilanterol (Breo Ellipta Mdi 100/25(Nf)) 1 puff INH DAILY [facility] Last Admin: 07/12/18 08:51 Dose: Not Given Furosemide (Lasix Iv*) 20 mg IV SLOW PU DAILY [facility] Last Admin: 07/12/18 08:52 Dose: 20 mg Isosorbide Mononitrate (Imdur Er Tab*) 30 mg PO DAILY [facility] Last Admin: 07/12/18 08:52 Dose: 30 mg Metoprolol Succinate (Toprol Xl Tab*) 50 mg PO DAILY [facility] Last Admin: 07/12/18 08:53 Dose: 50 mg Nortriptyline HCl (Pamelor Cap*) 10 mg PO BEDTIME [facility] Last Admin: 07/11/18 20:25 Dose: 10 mg Pantoprazole Sodium (Protonix Tab*) 40 mg PO DAILY [facility] Last Admin: 07/12/18 08:53 Dose: 40 mg Polyethylene Glycol/Electrolytes (Miralax*) 17 gm PO DAILY PRN PRN Reason: CONSTIPATION Last Admin: 07/11/18 08:09 Dose: 17 gm Potassium Chloride (Klor Con Er Tab*) 10 meq PO DAILY [facility] Last Admin: 07/12/18 08:53 Dose: 10 meq Prednisone (Deltasone Tab*) 40 mg PO DAILY [facility] Stop: 07/13/18 09:01 Last Admin: 07/12/18 08:53 Dose: 40 mg Tiotropium [place] (Spiriva Cap.Inh*) 1 cap INH DAILY [facility] Last Admin: 07/12/18 09:05 Dose: 1 cap Vital Signs - 8 hr 07/12/18 11:22 Temperature 98.1 F Pulse Rate 61 Respiratory 16 Rate Blood Pressure 139/59 (mmHg) O2 Sat by Pulse 97 Oximetry Oxygen Devices in Use Now: Nasal Cannula Appearance: alert, NAD Eyes: No Scleral Icterus, PERRLA Ears/Nose/Mouth/Throat: NL Teeth, Lips, Gums, Mucous Membranes Moist Neck: NL Appearance and Movements; NL JVP, Trachea Midline Respiratory: Symmetrical Chest Expansion and Respiratory Effort, - - improved air entry, decreased wheeze, diminished bases Cardiovascular: NL Sounds; No Murmurs; No JVD, RRR, No Edema Abdominal: NL Sounds; No Tenderness; No Distention, No Hepatosplenomegaly Skin: No Rash or Ulcers, No Nodules or Sclerosis Neurological: Alert and Oriented x 3 Nutrition: Taking PO's Result Diagrams: 07/11/18 05:17 07/11/18 05:17 Microbiology and Other Data: Microbiology 07/09/18 21:36 Legionella Urinary Antigen - Final Urine Negative Legionella Antigen Streptococcus pneumoniae Ag Screen - Final Negative S. pneumo Antigen Diagnostic Imaging: *[facility]* [place] [address] Fax #: [phone] Transthoracic Echocardiogram Patient: Burak, Height: 63 in / 160 Crystal felder : 1930 Weight: 118.8 lb / Study Date: 07/10/2018 54 kg Age: 87 BP: 154 / 79 Gender: F BMI/BSA: 21.1 kg/m^2 HR: 75 bpm / 1.55 m^2 *Machine Stripper: * Katherine Gamez [facility] *Referring Physician: * Clarita Thornton *Reading Physician: * Zenaida Thibodeaux MD Indications: Resp Insufficiency. History: Coronary artery disease. PMH: COPD exacerbation. Risk factors: Former tobacco use. Hypertension. Hyperlipidemia. Conclusions Summary: 1. Procedure narrative: Image quality was fair. The study was technically limited due to chest wall deformity. 2. Left ventricle: The cavity size is below normal. Wall thickness is normal. Systolic function is moderately reduced. The estimated ejection fraction is 35-40%, by visual assessment. There is interventricular dyssynchrony and D shaped left ventricle c/w right ventricle overload. 3. Right ventricle: Systolic function is low normal. 4. Mitral valve: The findings are consistent with mild stenosis. There is mild regurgitation. The pressure half-time is 162 ms. The mean diastolic gradient is 3.0 mm Hg. The valve area by pressure half-time is 1.4 cm^2. The valve area (LVOT continuity) is 2.2 cm^2. 5. Aortic valve: The findings are consistent with mild to moderate stenosis, STEVE may be overestimated due to depressed ejection fraction. The peak systolic gradient is 14.0 mm Hg. The valve area by the velocity-time integral method is 1.34 cm^2. 6. Tricuspid valve: There is mild regurgitation. 7. Pulmonary arteries: The peak pressure during systole by Doppler is 24.0 mm Hg. 8. Compared with prior echocardiogram of 04/30/18, ejection fraction is stale, right ventricle function is stable, stable, prior mean gradient 13 mHg, STEVE 1.5 cm2, mitral stenosis noted on prior study, mean gradient 3.6 mmHg. Prior pulmonary artery pressure was 46 mmHg. Assess/Plan/Problems-Billing Assessment: This is an 87 year old female with history of COPD on home O2 3L, CAD, ischemic cardiomyopathy, HF, recent fall/fracturewho presented with SOB thought to be COPD exacerbation and acute exacerbation of CHF - Patient Problems (1) Shortness of breath Code(s): R06.02 - SHORTNESS OF BREATH SNOMED Code(s): 930464172 Comment: - Etiology likely mixed COPD exacerbation with acute on chronic systolic heart failure exacerbation - EOO=104 - Procalcitonin 0.14, not likely consolidation, no fever or or leukocytosis, no indication for atbx - continue diuresing, plan for DC on oral lasix, appears euvolemic, BP stable - Continue nebs and inhalers, and day 4/5 prednisone - Much improvement noted today - Wean O2 to home requirement as tolerated (2) CAD (coronary artery disease) Code(s): I25.10 - ATHSCL HEART DISEASE OF [place] CORONARY ARTERY W/O ANG PCTRS SNOMED Code(s): 54824358 Comment: - Continue statin, beta jared - Not on ASA (3) COPD (chronic obstructive pulmonary disease) Code(s): J44.9 - CHRONIC OBSTRUCTIVE PULMONARY DISEASE, UNSPECIFIED SNOMED Code(s): 80469108 Comment: - continuous O2 at home (4) Hypertension Code(s): I10 - ESSENTIAL (PRIMARY) HYPERTENSION SNOMED Code(s): 20833248 Comment: - Stable on isordil, amlodipine, metoprolol (5) Ischemic cardiomyopathy Code(s): I25.5 - ISCHEMIC CARDIOMYOPATHY SNOMED Code(s): 873026644 Comment: - ECHO as above, chronic systolic heart failure, no acute changes on current ECHO - Continue BB and isordil (6) DVT prophylaxis Code(s): Z29.9 - ENCOUNTER FOR PROPHYLACTIC MEASURES, UNSPECIFIED SNOMED Code( s): 473366240 Comment: - Lovenox SQ (7) Do not resuscitate Status and Disposition: -Inpatient, dispo to home when medically optimized. Plan for DC tomorrow.
[2018-07-12] MEDS: Nortriptyline CAP* 10 MG PO SCH (20:21)
[2018-07-12] MEDS: Polyethylene Glycol 3350* 17 GM PACKET PO PRN (20:22)
[2018-07-12] MEDS: HYDROcodone/ACETAMIN 5-325 MG* 1 TAB PO PRN (20:22)
[2018-07-13 01:31] LABS: BUN/Creatinine Ratio 39.8 (8-20); Calcium 9.8 mg/dL (8.6-10.3); EGFR African American 58.1 (>60); Magnesium 2.1 mg/dL (1.9-2.7); Potassium 4.1 mmol/L (3.5-5.0)
[2018-07-13] MEDS: Fluticasone/Vilanterol MDI(NF) 100/25 MDI INH SCH (07:41)
[2018-07-13] MEDS: Tiotropium CAP.INH* CAP.INH/18 MCG (USE ORDER SET !) INH SCH (07:41)
[2018-07-13] MEDS: Metoprolol Succinate XL TAB* 50 MG PO SCH (09:17)
[2018-07-13] MEDS: Atorvastatin* 40 MG TAB PO SCH (09:18)
[2018-07-13] MEDS: Pantoprazole TAB * 40 MG TAB PO SCH (09:18)
[2018-07-13] MEDS: amLODIPine TAB* 5 MG PO SCH (09:18)
[2018-07-13] MEDS: Isosorbide Mononitrate ER TAB* 30 MG PO SCH (09:19)
[2018-07-13] MEDS: Citalopram TAB* 20 MG PO SCH (09:19)
[2018-07-13] MEDS: Potassium Chlor TAB* 10 MEQ TAB.ER PO SCH (09:20)
[2018-07-13] MEDS: predniSONE TAB* 20 MG PO SCH (09:20)
[2018-07-13] MEDS: Furosemide IV* 10 MG/ML 2 ML VIAL (20 MG) IV SLOW PU SCH (09:25)
[2018-07-13] MEDS: Polyethylene Glycol 3350* 17 GM PACKET PO PRN (09:25)
[2018-07-13] MEDS: HYDROcodone/ACETAMIN 5-325 MG* 1 TAB PO PRN ×2 (09:25→21:29)
[2018-07-13] MEDS ORDERED: Magnesium Sulfate 2 GM IV* 2 GM/50 ML BAG IVPB ONE (09:35)
--- NOTE | 2018-07-13 11:20 | PN ---
Subjective Date of Service: 07/13/18 Interval History: Patient seen and examined. Had run of 14 beats Vtach overnight and shorter run this am of 4-5 beats. Patient is complaining of increased fatigued and felt a flutter in her chest this morning as well but no chest pains or other anginal equivalents. No increase in shortness of breath, denies fevers or chills. Objective Active Medications: Acetaminophen (Tylenol Tab*) 975 mg PO Q8H PRN PRN Reason: FEVER/PAIN Hydrocodone Bitart/Acetaminophen ([place] 5-325 Tab*) 1 tab PO Q6H PRN PRN Reason: PAIN Last Admin: 07/13/18 09:25 Dose: 1 tab Albuterol/Ipratropium (Duoneb (Albuterol 2.5 Mg/Ipratropium 0.5 Mg)) 1 neb INH [id number] AWAKE PRN PRN Reason: sob/wheezing Amlodipine Besylate (Norvasc Tab*) 10 mg PO DAILY [facility] Last Admin: 07/13/18 09:18 Dose: 10 mg Atorvastatin Calcium (Lipitor*) 40 mg PO DAILY [facility] Last Admin: 07/13/18 09:18 Dose: 40 mg Citalopram Hydrobromide (Celexa Tab*) 20 mg PO DAILY [facility] Last Admin: 07/13/18 09:19 Dose: 20 mg Enoxaparin Sodium (Lovenox(*)) 30 mg SUBCUT Q24H ALISHA Last Admin: 07/12/18 16:25 Dose: 30 mg Fluticasone/Vilanterol (Breo Ellipta Mdi 100/25(Nf)) 1 puff INH DAILY [facility] Last Admin: 07/13/18 07:41 Dose: Not Given Furosemide (Lasix Iv*) 20 mg IV SLOW PU DAILY [facility] Last Admin: 07/13/18 09:25 Dose: 20 mg Isosorbide Mononitrate (Imdur Er Tab*) 30 mg PO DAILY [facility] Last Admin: 07/13/18 09:19 Dose: 30 mg Metoprolol Succinate (Toprol Xl Tab*) 50 mg PO DAILY [facility] Last Admin: 07/13/18 09:17 Dose: 50 mg Nortriptyline HCl (Pamelor Cap*) 10 mg PO BEDTIME ALISHA Last Admin: 07/12/18 20:21 Dose: 10 mg Pantoprazole Sodium (Protonix Tab*) 40 mg PO DAILY [facility] Last Admin: 07/13/18 09:18 Dose: 40 mg Polyethylene Glycol/Electrolytes (Miralax*) 17 gm PO DAILY PRN PRN Reason: CONSTIPATION Last Admin: 07/13/18 09:25 Dose: 17 gm Potassium Chloride (Klor Con Er Tab*) 10 meq PO DAILY [facility] Last Admin: 07/13/18 09:20 Dose: 10 meq Tiotropium [place] (Spiriva Cap.Inh*) 1 cap INH DAILY [facility] Last Admin: 07/13/18 07:41 Dose: 1 cap Vital Signs - 8 hr 07/13/18 07/13/18 07/13/18 07:43 07:45 09:25 Temperature 97.2 F Pulse Rate 60 56 Respiratory 14 18 18 Rate Blood Pressure 154/61 (mmHg) O2 Sat by Pulse 94 100 Oximetry Oxygen Devices in Use Now: Nasal Cannula Appearance: alert, tired appearing, NAD Eyes: No Scleral Icterus, PERRLA Ears/Nose/Mouth/Throat: NL Teeth, Lips, Gums, Mucous Membranes Moist Neck: NL Appearance and Movements; NL JVP, Trachea Midline Respiratory: Symmetrical Chest Expansion and Respiratory Effort, - - clear apices, diminished bases, no wheeze Cardiovascular: No Edema, - - irregular, no murmurs Abdominal: NL Sounds; No Tenderness; No Distention Extremities: No Edema, No Clubbing, Cyanosis Skin: No Rash or Ulcers Neurological: Alert and Oriented x 3, NL Gait Nutrition: Taking PO's Result Diagrams: 07/11/18 05:17 07/13/18 01:02 Microbiology and Other Data: Microbiology 07/09/18 21:36 Legionella Urinary Antigen - Final Urine Negative Legionella Antigen Streptococcus pneumoniae Ag Screen - Final Negative S. pneumo Antigen Diagnostic Imaging: *[facility]* [place] [address] Fax #: [phone] Transthoracic Echocardiogram Patient: Burak, Height: 63 in / 160 Crystal felder : 1930 Weight: 118.8 lb / Study Date: 07/10/2018 54 kg Age: 87 BP: 154 / 79 Gender: F BMI/BSA: 21.1 kg/m^2 HR: 75 bpm / 1.55 m^2 *Full Time Paramedic: * Katherine Gamez RD *Referring Physician: * Clarita Thornton *Reading Physician: * Zenaida Thibodeaux MD Indications: Resp Insufficiency. History: Coronary artery disease. PMH: COPD exacerbation. Risk factors: Former tobacco use. Hypertension. Hyperlipidemia. Conclusions Summary: 1. Procedure narrative: Image quality was fair. The study was technically limited due to chest wall deformity. 2. Left ventricle: The cavity size is below normal. Wall thickness is normal. Systolic function is moderately reduced. The estimated ejection fraction is 35-40%, by visual assessment. There is interventricular dyssynchrony and D shaped left ventricle c/w right ventricle overload. 3. Right ventricle: Systolic function is low normal. 4. Mitral valve: The findings are consistent with mild stenosis. There is mild regurgitation. The pressure half-time is 162 ms. The mean diastolic gradient is 3.0 mm Hg. The valve area by pressure half-time is 1.4 cm^2. The valve area (LVOT continuity) is 2.2 cm^2. 5. Aortic valve: The findings are consistent with mild to moderate stenosis, STEVE may be overestimated due to depressed ejection fraction. The peak systolic gradient is 14.0 mm Hg. The valve area by the velocity-time integral method is 1.34 cm^2. 6. Tricuspid valve: There is mild regurgitation. 7. Pulmonary arteries: The peak pressure during systole by Doppler is 24.0 mm Hg. 8. Compared with prior echocardiogram of 04/30/18, ejection fraction is stale, right ventricle function is stable, stable, prior mean gradient 13 mHg, STEVE 1.5 cm2, mitral stenosis noted on prior study, mean gradient 3.6 mmHg. Prior pulmonary artery pressure was 46 mmHg. Assess/Plan/Problems-Billing Assessment: This is an 87 year old female with history of COPD on home O2 3L, CAD, ischemic cardiomyopathy, HF, recent fall/fracture who presented with SOB thought to be COPD exacerbation and acute exacerbation of CHF. - Patient Problems (1) Ventricular tachycardia seen on conveyor monitor Code(s): I47.2 - VENTRICULAR TACHYCARDIA SNOMED Code(s): 920016521 Comment: - Aymptomatic self-limiting event overnight, however, complained of some chest fluttering this morning and fatigue today - Stress test low risk last month, ECHO with no changes from previous, does have history of ischemic cardiomyopathy with questionable follow up previous to her living in [place], currently on appropriate medical therapy - Will give 2 gram mag now, continue telemetry, will try to obtain cardiac records to assess if antiarrhythmics were discussed at some point (2) Shortness of breath Code(s): R06.02 - SHORTNESS OF BREATH SNOMED Code(s): 012357678 Comment: - Etiology likely mixed COPD exacerbation with acute on chronic systolic heart failure exacerbation - VYD=274 - Procalcitonin 0.14, not likely consolidation, no fever or or leukocytosis, no indication for atbx - continue diuresing, plan for DC on oral lasix, appears euvolemic, BP stable - Continue nebs and inhalers, and day 4/5 prednisone - Much improvement noted today - Wean O2 to home requirement as tolerated (3) CAD (coronary artery disease) Code(s): I25.10 - ATHSCL HEART DISEASE OF [place] CORONARY ARTERY W/O ANG PCTRS SNOMED Code(s): 72170398 Comment: - Continue statin, beta jared - Not on ASA (4) COPD (chronic obstructive pulmonary disease) Code(s): J44.9 - CHRONIC OBSTRUCTIVE PULMONARY DISEASE, UNSPECIFIED SNOMED Code(s): 53127597 Comment: - continuous O2 at home, at 2L today (at baseline) (5) Hypertension Code(s): I10 - ESSENTIAL (PRIMARY) HYPERTENSION SNOMED Code(s): 80978593 Comment: - Stable on isordil, amlodipine, metoprolol (6) Ischemic cardiomyopathy Code(s): I25.5 - ISCHEMIC CARDIOMYOPATHY SNOMED Code(s): 163983210 Comment: - ECHO as above, chronic systolic heart failure, no acute changes on current ECHO - Continue BB and isordil (7) DVT prophylaxis Code(s): Z29.9 - ENCOUNTER FOR PROPHYLACTIC MEASURES, UNSPECIFIED SNOMED Code( s): 756156970 Comment: - Lovenox SQ (8) Do not resuscitate Status and Disposition: -Inpatient, dispo to home when medically optimized. Given overnight arrhythmia, will hold discharge today.
--- NOTE | 2018-07-13 14:09 | PN ---
Cardiology Progress Note Date of Service: 07/13/18 - CC: weakness, NSVT Full dicatation to follow. Pt admitted with respiratory illness, productive sputum. NSVT x 2, MM with symptoms. Hx intermittent weakness as an out patient as well. April 2018 nuclear stress CMC; no ischemia, no infarct, EF 60% Wheezy on exam, rhoncheros cough. Echo July 09, 2018: 1. Procedure narrative: Image quality was fair. The study was technically limited due to chest wall deformity. 2. Left ventricle: The cavity size is below normal. Wall thickness is normal. Systolic function is moderately reduced. The estimated ejection fraction is 35-40%, by visual assessment. There is interventricular dyssynchrony and D shaped left ventricle c/w right ventricle overload. 3. Right ventricle: Systolic function is low normal. 4. Mitral valve: The findings are consistent with mild stenosis. There is mild regurgitation. The pressure half-time is 162 ms. The mean diastolic gradient is 3.0 mm Hg. The valve area by pressure half-time is 1.4 cm^2. The valve area (LVOT continuity) is 2.2 cm^2. 5. Aortic valve: The findings are consistent with mild to moderate stenosis, STEVE may be overestimated due to depressed ejection fraction. The peak systolic gradient is 14.0 mm Hg. The valve area by the velocity-time integral method is 1.34 cm^2. 6. Tricuspid valve: There is mild regurgitation. 7. Pulmonary arteries: The peak pressure during systole by Doppler is 24.0 mm Hg. 8. Compared with prior echocardiogram of 04/30/18, ejection fraction is stale, right ventricle function is stable, stable, prior mean gradient 13 mHg, STEVE 1.5 cm2, mitral stenosis noted on prior study, mean gradient 3.6 mmHg. 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 VT: Patient amenable to ICD if recommended, unable to implant until next week after the holiday. Could be due to LV, RV or chronic pulmonary issues. I can't explain discrepancy in nuclear EF and echo EF. Valvular heart disease: Concern that could be tighter than estimated on echo Recommend VIRI with anaesthesia assistance, this will also be good for LV/RV function estimates. Pulmonary Disease: Per patient chronic need for O2 following lobar pneumonia years ago. 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 consider CT or CTA with D shaped septum (suggesting RV and pulmonary strain) and chronic hx pulmonary disease, O2 dependance. Elevated BUN: Overdiuresis. Overall: I think weakness today is due to too much lasix, adjust, perhaps alternate lasix with aldactone, see below. NSVT: -Could we stop Spriva? can lead to tacharrhythmias. -If able, increase metoprolol, but wheezy today. -Could add aldactone for CM (and stop norvasc and KCL) -Check VIRI for LV and valves/verify EF earliest would be Sunday -ICD if VIRI confirms EF and no correctable valve issues (exam c/w moderate not severe however). Pulmonary: -If not done in [place] consider formal work up, consult, CT's to characterize, pulmonary issues are impacting on cardiac.
[2018-07-13] MEDS: Enoxaparin(*) 30 MG/0.3 ML SYR SUBCUT SCH (17:47)
--- NOTE | 2018-07-13 20:33 | CONS ---
CC: Carlos Ortiz NP; Hospitalist; Dr. Rader CONSULTATION REPORT: DATE OF CONSULT: 07/13/18 REASON FOR CONSULT: Nonsustained ventricular tachycardia. HISTORY OF PRESENT ILLNESS: Ms. Sumner is an 87-year-old woman who is relatively new to the [facility], who presented on 07/09/18 to [facility] with a productive cough of green-yellow sputum and increase in shortness of breath. The patient has a long history of COPD, followed by Dr. Almendarez, on chronic continuous oxygen, as well as a reported history of coronary artery disease. The patient was treated with antibiotics and was feeling well yesterday, was tentatively planned to go home today and overnight had 2 runs of monomorphic ventricular tachycardia. The patient states that today she does feel weaker than yesterday in general and when she had a nonsustained event this morning, she was aware with palpitations. She has met with Dr. Rader once in the [facility] for cardiology consultation and she did mention to him that she felt intermittently weak. The patient's echocardiogram this admission showed a [id number] cardiomyopathy and her daughter told the admitting hospitalist of an old myocardial infarction. The only old records in [facility] from Cardiology are an echo from 2017 showing an ejection fraction of 55%, aortic valve sclerosis, mitral valve sclerosis, and elevated PA pressure of 45 to 50 mmHg. PAST MEDICAL HISTORY: The patient has a past medical history of: 1. Pulmonary disease, COPD, former smoker, also exposures as her job in [employer] in [place], on continuous oxygen currently. 2. Psoriasis, on Stelara. 3. Coronary artery disease based on her daughter's history. 4. Cardiomyopathy based on echo this admission. 5. Hypertension. 6. Hyperlipidemia. 7. Actinic keratosis. 8. Fall, October 2007 (fractured hip and distal femur). PAST SURGICAL HISTORY: Includes: 1. Femur fracture repair. 2. Bladder and bowels. 3. Appendectomy. 4. Back surgery. OUTPATIENT MEDICATIONS: Included: 1. Amlodipine 10 mg a day. 2. Atorvastatin 60 mg a day. 3. Benicar/hydrochlorothiazide 40/25 mg a day. 4. Biotin 5 mg a day. 5. Breo Ellipta 100/25 inhaler. 6. Citalopram 20 mg a day. 7. Colace. 8. Diovan/hydrochlorothiazide 160/25 daily. 9. Ellipta inhaler. 10. Isosorbide 30 mg a day. 11. Lasix 20 mg a day. 12. Magnesium. 13. Toprol-XL 50 mg a day. 14. [place]. 15. Nortriptyline 10 mg a day. 16. [place] 500/200. 17. 2 L oxygen, chronic. 18. Protonix 20 mg a day. 19. KCl 10 mEq a day. 20. Spiriva 18 mcg inhaler. 21. Stelara 45 mg every 3 months. 22. Vitamin D 1 g a day. ALLERGIES: No known drug allergies. FAMILY HISTORY: Significant in that her mother of a stroke at 61. Her father in his 70s. Diabetes, heart disease and dyslipidemia in the family. SOCIAL HISTORY: The patient stopped smoking approximately 17 years ago. She had smoked from age 15 to 70. No alcohol use. No history of recreational drug use. No regular activity/exercise. REVIEW OF SYSTEMS: Positive for feeling very winded just moving in bed today, swollen legs, poor appetite, intermittent palpitations, and dizziness. She denies chest pain, pressure, or heaviness. All other 14-point review of systems was negative. PHYSICAL EXAM: The patient is 5 feet 3 inches, weighs 119 pounds with a BMI of 21. Blood pressure 123/56; pulse was 54 and regular; respiratory rate was 16; oxygen saturation on nasal cannula 98%; currently afebrile, low-grade fevers around 99 degrees Fahrenheit earlier on admission. The patient is a petite, elderly woman, lying with oxygen on in bed, appearing fatigued. Psychologically , pleasant and cooperative. Neurologically, quite alert; oriented to person, place, I did not check for time; followed commands well. Speech is articulate. Good historian. Skin: Age-appropriate changes. No appreciable cyanosis. Lower extremities showed discoloration consistent with chronic venous stasis. HEENT: Pupils were equal and round. Mucous membranes moist. Neck without increased JVP appreciated. Good carotid pulses without audible bruits. No thyromegaly appreciated. Breath sounds diminished throughout and fine wheezes predominantly in the bases: Coronary: Somewhat distant, S1, S2, regular with soft, early peaking systolic murmur heard in the right upper sternal border. Abdomen: Active bowel sounds. Soft and nontender. Lower extremities were edematous bilaterally with violaceous discoloration and warmth. They were nontender. DIAGNOSTIC STUDIES/LAB DATA: White count 9.0, hematocrit 35, platelets 202. INR 1.06. Sodium 133, potassium 4.1, chloride 99, BUN 43, creatinine 1.08 ( increased from BUN of 18 and creatinine of 1.14 on admission), glucose 130; magnesium 2.1, increased from 1.6. Brain natriuretic peptide of 709. Troponin 0.01. AST . No lipids performed. Chest x-ray on admission 07/09/18 showed probable bronchopneumonia superimposed on COPD. EKG from 07/09/18 shows normal sinus rhythm with an incomplete left bundle- branch block and PVC. No EKGs done since. Corrected QT was 427 milliseconds. When this EKG is compared with baseline ECG of 03/23/18 at [facility], there is no significant change in the QRS or STs. Outpatient studies include a Holter monitor on 04/23/18 showing normal sinus rhythm with a mean heart rate of 59 beats a minute, occasional PACs, multiple episodes of SVT up to 9 in a row, and she had rare PVCs at 15 in a 24-hour period. Echocardiogram from 04/30/18 done at [facility] showed an ejection fraction of 35% to 40%, mildly reduced right ventricular systolic function, mild aortic valve stenosis, mild mitral stenosis, mild tricuspid insufficiency, and PA pressure was estimated at 46 mmHg. Echocardiogram from this admission 07/10/18 showed an ejection fraction of 35% to 40% with a D-shaped septum suggesting RV overload, RV systolic function was low normal, mild mitral stenosis, mild mitral insufficiency, [id number] aortic valve stenosis, mild tricuspid insufficiency, and PA pressure estimated at 24 mmHg. Chemical stress test done at [facility] on 05/08/18 showed an ejection fraction of 60% with normal perfusion, no infarction, no ischemia. IMPRESSION AND PLAN: In summary, Crystal Sumner is an 87-year-old woman, I was asked to see for monomorphic ventricular tachycardia, 1 episode with sleep and 1 while awake today and symptomatic with dizziness that she has noted before without clear diagnosis. Ms. Sumner has a [id number] cardiomyopathy that by history may be ischemic, but we do not have records from [place] to support this. Her ejection fraction appears to have dropped sometime between 2017 and now. For the patient's ventricular tachycardia, it could be due to her left ventricular cardiomyopathy and we have 2 echos interpreted by 2 individuals that would confirm the low ejection fraction and one option would be to proceed with implantation of the ICD. Confounding this plan is a nuclear study performed between the two echos showing a normal ejection fraction. I will try to review this personally with a radiologist including the gated portion. If the studies do not corroborate, we will need to do more investigation about a possible reversible process. Her chronic pulmonary disease could be impacting or causing her ventricular tachycardia as well. She has undergone pulmonary function testing with Pulmonary, but I do not believe we have any imaging studies and they may or may not be needed, but RV function, PA pressures and the medications for her pulmonary disease could be impacting on her ventricular ectopy. Potential considerations here would be additional pulmonary workup if it would lead to management changes. With her hip fracture and fall and the echo showing a D-shaped ventricle, I would entertain the possibility that at some point she could have had a pulmonary embolus contributing to her overall pulmonary status as well. Today with the patient's weakness and that her BUN is up, I suspect this is related to overdiuresis. She would not tolerate this with her pulmonary disease. Her right ventricle will need good preload. I would recommend holding her Lasix for now. For the cardiomyopathy, we could consider adding Aldactone, for instance alternating Lasix with Aldactone, following BUN and creatinine carefully. Stopping amlodipine for BP. If the patient's chronic obstructive pulmonary disease would tolerate it, I think she could come off Spiriva that might help decrease the ectopy. Medical management might help lower the amount of ventricular tachycardia, i.e. , increased metoprolol or an antiarrhythmic such as amiodarone; however, it would not change her risk of sudden and might worsen her pulmonary status , so I am not recommending this at this time. Her psoriatic arthritis could also be contributing to her pulmonary status and cardiac issues. Consideration of evaluation with a tank farm attendant may want to be considered as well. To summarize, I think an ICD is the best management for the patient's monomorphic ventricular tachycardia in the setting of her cardiomyopathy if it is not reversible or improvable. To optimize improvement of EF, treatment of her acute pneumonia and pulmonary status and optimization of medications for her cardiomyopathy, i.e., addition of Aldactone and if blood pressure would tolerate, resumption of her YOCASTA or ARB. Consideration of transesophageal echo in order to evaluate valvular function more optimally, her recent echo was suboptimal due to her pulmonary disease and body habitus. Any studies requiring sedation would need to be done with anesthesia due to her pulmonary status. With any aggressive management, we will need to look at risk-benefit due to what sounds likely severe pulmonary disease. Thank you for allowing me to assist in this very nice, but complex woman's care. [id number]/[facility] #: [id number] AGATHA
[2018-07-13] MEDS: Nortriptyline CAP* 10 MG PO SCH (21:28)
[2018-07-14 05:53] LABS: EGFR African American 47.3 (>60); EGFR Non-African American 39.1 (>60)
[2018-07-14] MEDS: Tiotropium CAP.INH* CAP.INH/18 MCG (USE ORDER SET !) INH SCH (07:27)
[2018-07-14] MEDS: Fluticasone/Vilanterol MDI(NF) 100/25 MDI INH SCH (07:27)
[2018-07-14] MEDS: Polyethylene Glycol 3350* 17 GM PACKET PO PRN (09:50)
[2018-07-14] MEDS: Isosorbide Mononitrate ER TAB* 30 MG PO SCH (09:50)
[2018-07-14] MEDS: Metoprolol Succinate XL TAB* 50 MG PO SCH (09:50)
[2018-07-14] MEDS: Furosemide IV* 10 MG/ML 2 ML VIAL (20 MG) IV SLOW PU SCH (09:51)
[2018-07-14] MEDS: HYDROcodone/ACETAMIN 5-325 MG* 1 TAB PO PRN ×2 (09:51→20:17)
[2018-07-14] MEDS: Potassium Chlor TAB* 10 MEQ TAB.ER PO SCH (09:52)
[2018-07-14] MEDS: Citalopram TAB* 20 MG PO SCH (09:52)
[2018-07-14] MEDS: Pantoprazole TAB * 40 MG TAB PO SCH (09:52)
[2018-07-14] MEDS: Atorvastatin* 40 MG TAB PO SCH (09:53)
[2018-07-14] MEDS: amLODIPine TAB* 5 MG PO SCH (09:53)
--- NOTE | 2018-07-14 13:10 | PN ---
Subjective Date of Service: 07/14/18 - CC: NSVT Interval History: No further VT overnight. Pt feeling a bit better overall. Medications Active Medications: Acetaminophen (Tylenol Tab*) 975 mg PO Q8H PRN PRN Reason: FEVER/PAIN Hydrocodone Bitart/Acetaminophen ([place] 5-325 Tab*) 1 tab PO Q6H PRN PRN Reason: PAIN Last Admin: 07/14/18 09:51 Dose: 1 tab Albuterol/Ipratropium (Duoneb (Albuterol 2.5 Mg/Ipratropium 0.5 Mg)) 1 neb INH [id number] AWAKE PRN PRN Reason: sob/wheezing Amlodipine Besylate (Norvasc Tab*) 10 mg PO DAILY [facility] Last Admin: 07/14/18 09:53 Dose: 10 mg Atorvastatin Calcium (Lipitor*) 40 mg PO DAILY [facility] Last Admin: 07/14/18 09:53 Dose: 40 mg Citalopram Hydrobromide (Celexa Tab*) 20 mg PO DAILY [facility] Last Admin: 07/14/18 09:52 Dose: 20 mg Enoxaparin Sodium (Lovenox(*)) 30 mg SUBCUT Q24H [facility] Last Admin: 07/13/18 17:47 Dose: 30 mg Fluticasone/Vilanterol (Breo Ellipta Mdi 100/25(Nf)) 1 puff INH DAILY [facility] Last Admin: 07/14/18 07:27 Dose: Not Given Furosemide (Lasix Iv*) 20 mg IV SLOW PU DAILY [facility] Last Admin: 07/14/18 09:51 Dose: 20 mg Isosorbide Mononitrate (Imdur Er Tab*) 30 mg PO DAILY [facility]IS[facility] Last Admin: 07/14/18 09:50 Dose: 30 mg Metoprolol Succinate (Toprol Xl Tab*) 50 mg PO DAILY [facility] Last Admin: 07/14/18 09:50 Dose: 50 mg Nortriptyline HCl (Pamelor Cap*) 10 mg PO BEDTIME ALISHA Last Admin: 07/13/18 21:28 Dose: 10 mg Pantoprazole Sodium (Protonix Tab*) 40 mg PO DAILY [facility] Last Admin: 07/14/18 09:52 Dose: 40 mg Polyethylene Glycol/Electrolytes (Miralax*) 17 gm PO DAILY PRN PRN Reason: CONSTIPATION Last Admin: 07/14/18 09:50 Dose: 17 gm Potassium Chloride (Klor Con Er Tab*) 10 meq PO DAILY ALISHA Last Admin: 07/14/18 09:52 Dose: 10 meq Tiotropium [place] (Spiriva Cap.Inh*) 1 cap INH DAILY [facility] Last Admin: 07/14/18 07:27 Dose: 1 cap Objective Vital Signs: Temp Pulse Resp BP Pulse Ox 98.6 F 58 18 116/51 96 07/14/18 11:43 07/14/18 11:43 07/14/18 11:53 07/14/18 11:43 07/14/18 11:43 Intake and Output Last 24 Hours 07/12/18 07/13/18 07/14/18 07/15/18 04:59 04:59 04:59 04:59 Intake Total 1680 1190 1745 360 Output Total 0 0 Balance 1680 1190 1745 360 Intake: IV Fluids 50 magnesium 50 Oral 1680 1190 1695 360 Output: Urine 0 0 Other: Estimated Void Small # Voids 1 2 2 Oxygen Devices in Use Now: Nasal Cannula Eyes: PERRLA Ears/Nose/Mouth/Throat: Mucous Membranes Moist Neck: Trachea Midline Respiratory: - - Marked rhonchi and wheezing diffusely. Cardiovascular: RRR - no murmurs. Abdominal: No Hepatosplenomegaly Skin: No Rash or Ulcers Neurological: Alert and Oriented x 3 Laboratory Results: 07/11/18 05:17 07/14/18 05:11 INR (Anticoag Therapy) 1.06 (0.82-1.09) 07/09/18 12:43 Total Bilirubin 0.50 mg/dL (0.2-1.0) 07/09/18 12:43 AST 25 U/L (13-39) 07/09/18 12:43 ALT 16 U/L (7-52) 07/09/18 12:43 Alkaline Phosphatase 134 U/L (34-104) H 07/09/18 12:43 B-Natriuretic Peptide 709 pg/mL (<=100) H 07/09/18 12:43 Total Protein 7.3 g/dL (6.4-8.9) 07/09/18 12:43 Albumin 4.3 g/dL (3.2-5.2) 07/09/18 12:43 Globulin 3.0 g/dL (2-4) 07/09/18 12:43 Albumin/Globulin Ratio 1.4 (1-3) 07/09/18 12:43 07/09/18 12:43 Troponin I 0.01 Diagnostic Imaging: Nuclear stress 05/08/18: Normal perfusion, EF 60% (per report and reviewed personally). ECHO April 30 2018: EF 35-40% Echo : EF 35-40%, D shaped LV, mild MS, mild MR, mild to moderate . 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 EF was normal in April on nuclear ventriculogram (reviewed personally) suggesting a possible reversible process for depressed EF. VT: Improved with Magnesium infusions. Nortriptyline can increase ectopy, dose help with sleep, but could we try melatonin instead?. Hypoxemia and pulmonary meds can increase ectopy. Per patient no improvement in SOB with spiriva, consider discussing cessation with pulmonary. BUN: Remains elevated. CM: See consult note: consider adding aldactone and resuming ACEI/ARB. Appears reversible, if so ICD not indicated, medical management including supportive care with optimization of pulmonary status. Recommend updated echo for EF in a week or when optimized.
[2018-07-14] MEDS: Enoxaparin(*) 30 MG/0.3 ML SYR SUBCUT SCH (17:33)
--- NOTE | 2018-07-14 17:57 | PN ---
Subjective Date of Service: 07/14/18 Interval History: Resting in bed on assessment. Reports ease of breathing is at baseline for her. Denies cp, palpitations, nausea, vomiting, diaphoresis, fever, chills. Objective Active Medications: Acetaminophen (Tylenol Tab*) 975 mg PO Q8H PRN PRN Reason: FEVER/PAIN Hydrocodone Bitart/Acetaminophen ([place] 5-325 Tab*) 1 tab PO Q6H PRN PRN Reason: PAIN Last Admin: 07/14/18 09:51 Dose: 1 tab Albuterol/Ipratropium (Duoneb (Albuterol 2.5 Mg/Ipratropium 0.5 Mg)) 1 neb INH [id number] AWAKE PRN PRN Reason: sob/wheezing Amlodipine Besylate (Norvasc Tab*) 10 mg PO DAILY [facility] Last Admin: 07/14/18 09:53 Dose: 10 mg Atorvastatin Calcium (Lipitor*) 40 mg PO DAILY [facility] Last Admin: 07/14/18 09:53 Dose: 40 mg Citalopram Hydrobromide (Celexa Tab*) 20 mg PO DAILY [facility] Last Admin: 07/14/18 09:52 Dose: 20 mg Enoxaparin Sodium (Lovenox(*)) 30 mg SUBCUT Q24H [facility] Last Admin: 07/14/18 17:33 Dose: 30 mg Fluticasone/Vilanterol (Breo Ellipta Mdi 100/25(Nf)) 1 puff INH DAILY [facility] Last Admin: 07/14/18 07:27 Dose: Not Given Furosemide (Lasix Iv*) 20 mg IV SLOW PU DAILY [facility] Last Admin: 07/14/18 09:51 Dose: 20 mg Isosorbide Mononitrate (Imdur Er Tab*) 30 mg PO DAILY [facility] Last Admin: 07/14/18 09:50 Dose: 30 mg Metoprolol Succinate (Toprol Xl Tab*) 50 mg PO DAILY [facility] Last Admin: 07/14/18 09:50 Dose: 50 mg Nortriptyline HCl (Pamelor Cap*) 10 mg PO BEDTIME [facility]IS[facility] Last Admin: 07/13/18 21:28 Dose: 10 mg Pantoprazole Sodium (Protonix Tab*) 40 mg PO DAILY [facility] Last Admin: 07/14/18 09:52 Dose: 40 mg Polyethylene Glycol/Electrolytes (Miralax*) 17 gm PO DAILY PRN PRN Reason: CONSTIPATION Last Admin: 07/14/18 09:50 Dose: 17 gm Potassium Chloride (Klor Con Er Tab*) 10 meq PO DAILY [facility] Last Admin: 07/14/18 09:52 Dose: 10 meq Tiotropium [place] (Spiriva Cap.Inh*) 1 cap INH DAILY [facility] Last Admin: 07/14/18 07:27 Dose: 1 cap Vital Signs - 8 hr 07/14/18 07/14/18 07/14/18 11:43 11:53 15:37 Temperature 98.6 F 97.8 F Pulse Rate 58 63 Respiratory 16 18 18 Rate Blood Pressure 116/51 139/61 (mmHg) O2 Sat by Pulse 96 98 Oximetry Oxygen Devices in Use Now: Nasal Cannula Appearance: Comfortable, NAD Eyes: No Scleral Icterus Ears/Nose/Mouth/Throat: Clear Oropharnyx, Mucous Membranes Moist Neck: NL Appearance and Movements; NL JVP Respiratory: Symmetrical Chest Expansion and Respiratory Effort, Clear to Auscultation Cardiovascular: NL Sounds; No Murmurs; No JVD, RRR, No Edema Abdominal: NL Sounds; No Tenderness; No Distention Lymphatic: No Cervical Adenopathy Extremities: No Clubbing, Cyanosis Skin: No Rash or Ulcers Neurological: Alert and Oriented x 3, NL Muscle Strength and Tone Nutrition: Taking PO's Result Diagrams: 07/11/18 05:17 07/14/18 05:11 Additional Lab and Data: Laboratory Results - last 24 hr 07/14/18 05:11 BUN 45 H Creatinine 1.29 H Est GFR ( Amer) 47.3 Est GFR (Non-Af Amer) 39.1 Microbiology and Other Data: Microbiology 07/09/18 16:27 Blood Venous Aerobic Blood Culture - Final No Growth Day 5 07/09/18 16:27 Blood Venous Anaerobic Blood Culture - Final No Growth Day 5 07/10/18 10:00 Sputum Gram Stain - Final 07/10/18 10:00 Sputum Sputum Culture - Final Normal Brunilda 07/09/18 21:36 Urine Legionella Urinary Antigen - Final Negative Legionella Antigen 07/09/18 21:36 Urine Streptococcus pneumoniae Ag Screen - Final Negative S. pneumo Antigen Diagnostic Imaging: *[facility]* [place] [address] Fax #: [phone] Transthoracic Echocardiogram Patient: Burak, Height: 63 in / 160 Crystal felder : 1930 Weight: 118.8 lb / Study Date: 07/10/2018 54 kg Age: 87 BP: 154 / 79 Gender: F BMI/BSA: 21.1 kg/m^2 HR: 75 bpm / 1.55 m^2 *Nurse Advocate: * Katherine Gamez [facility] *Referring Physician: * Clarita Thornton *Reading Physician: * Zenaida Thibodeaux MD Indications: Resp Insufficiency. History: Coronary artery disease. PMH: COPD exacerbation. Risk factors: Former tobacco use. Hypertension. Hyperlipidemia. Conclusions Summary: 1. Procedure narrative: Image quality was fair. The study was technically limited due to chest wall deformity. 2. Left ventricle: The cavity size is below normal. Wall thickness is normal. Systolic function is moderately reduced. The estimated ejection fraction is 35-40%, by visual assessment. There is interventricular dyssynchrony and D shaped left ventricle c/w right ventricle overload. 3. Right ventricle: Systolic function is low normal. 4. Mitral valve: The findings are consistent with mild stenosis. There is mild regurgitation. The pressure half-time is 162 ms. The mean diastolic gradient is 3.0 mm Hg. The valve area by pressure half-time is 1.4 cm^2. The valve area (LVOT continuity) is 2.2 cm^2. 5. Aortic valve: The findings are consistent with mild to moderate stenosis, STEVE may be overestimated due to depressed ejection fraction. The peak systolic gradient is 14.0 mm Hg. The valve area by the velocity-time integral method is 1.34 cm^2. 6. Tricuspid valve: There is mild regurgitation. 7. Pulmonary arteries: The peak pressure during systole by Doppler is 24.0 mm Hg. 8. Compared with prior echocardiogram of 04/30/18, ejection fraction is stale, right ventricle function is stable, stable, prior mean gradient 13 mHg, STEVE 1.5 cm2, mitral stenosis noted on prior study, mean gradient 3.6 mmHg. Prior pulmonary artery pressure was 46 mmHg. Assess/Plan/Problems-Billing Assessment: This is an 87 year old female with history of COPD on home O2 3L, CAD, ischemic cardiomyopathy, HF, recent fall/fracture who presented with SOB thought to be COPD exacerbation and acute exacerbation of CHF. - Patient Problems (1) Heart failure Comment: - HFrEF - On BB, Imdur, and Norvasc - When CONSUELO resolved consider stopping Norvasc and adding YOCASTA/ARB - Also consider adding Aldactone when CONSUELO resolved. - Stopped daily Lasix given elevated BUN, CONSUELO, and patient appears evolemic (2) Ventricular tachycardia seen on site monitor Comment: - Last episode yesterday 07/13 - Per Cardiology EF was normal in April with Nuclear study, therefore, suggesting reversible process for current reduced EF of 35% to 40% - Mag given yesterday. Now wnl. - Per cardiology nortriptyline could increase ectopy, therefore, I will titrate patient off and trial melatonin. - In addition, Spiriva could increase ecopty and patient reports no improvement with Spiriva. Consider trialing off in future. Discuss with pulm (3) CAD (coronary artery disease) Comment: - Continue statin, beta jared - Not on ASA (4) COPD (chronic obstructive pulmonary disease) Comment: - continuous O2 at home, at 2L today (at baseline) (5) Hypertension Current Visit: Yes Status: Acute Code(s): I10 - ESSENTIAL (PRIMARY) HYPERTENSION SNOMED Code(s): 79575735 Comment: - Stable on imdur, amlodipine, metoprolol (6) Shortness of breath Comment: - Etiology likely mixed COPD exacerbation with acute on chronic systolic heart failure exacerbation - [id number] - Procalcitonin 0.14, not likely consolidation, no fever or or leukocytosis, no indication for atbx - Appears euvolemic and BP stable. Add Aldactone and Lasix in future - Continue nebs and inhalers, and day 5/5 prednisone - Given recent fx, sudden onset of sob that led to presentation to ED, and echo results; I have ordered a DDimer (7) Do not resuscitate Status and Disposition: -Inpatient, dispo to home when medically optimized. Attending: Altaf Meléndez
[2018-07-14] MEDS: Nortriptyline CAP* 10 MG PO SCH (20:18)
[2018-07-15 07:16] LABS: ABS Eosinophils 0.4 10^3/ul (0-0.6); ABS Lymphocytes 2.2 10^3/ul (1.0-4.8); ABS Monocytes 0.8 10^3/ul (0-0.8); ABS Neutrophils 2.9 10^3/ul (1.5-7.7); Eosinophil % 5.8 %; Hematocrit 36 % (35-47); Hemoglobin 12.3 g/dL (12.0-16.0); Lymphocyte % 35.4 %; Mean Corpuscular HGB Conc 34 g/dL (31-36); Mean Corpuscular Hemoglobin 30 pg (27-31); Mean Corpuscular Volume 90 fL (80-97); Mean Platelet Volume 6.9 fL (7.4-10.4); Platelet Count 200 10^3/uL (150-450); Red Blood Count 4.04 10^6 /uL (3.70-4.87); Red Cell Distribution Width 14 % (10.5-15); White Blood Count 6.3 10^3/uL (3.5-10.8)
[2018-07-15 07:38] LABS: BUN/Creatinine Ratio 35.8 (8-20); Calcium 9.4 mg/dL (8.6-10.3); EGFR African American 51.4 (>60); EGFR Non-African American 42.5 (>60); Potassium 4.3 mmol/L (3.5-5.0)
[2018-07-15] MEDS: Fluticasone/Vilanterol MDI(NF) 100/25 MDI INH SCH (07:40)
[2018-07-15] MEDS: Tiotropium CAP.INH* CAP.INH/18 MCG (USE ORDER SET !) INH SCH (07:41)
[2018-07-15] MEDS: Potassium Chlor TAB* 10 MEQ TAB.ER PO SCH (08:10)
[2018-07-15] MEDS: Citalopram TAB* 20 MG PO SCH (08:10)
[2018-07-15] MEDS: Isosorbide Mononitrate ER TAB* 30 MG PO SCH (08:11)
[2018-07-15] MEDS: amLODIPine TAB* 5 MG PO SCH (08:11)
[2018-07-15] MEDS: Metoprolol Succinate XL TAB* 50 MG PO SCH (08:11)
[2018-07-15] MEDS: Atorvastatin* 40 MG TAB PO SCH (08:11)
[2018-07-15] MEDS: Pantoprazole TAB * 40 MG TAB PO SCH (08:11)
[2018-07-15] MEDS: HYDROcodone/ACETAMIN 5-325 MG* 1 TAB PO PRN (08:11)
[2018-07-15 09:14] VITALS: BP 157/47
[2018-07-15] MEDS ORDERED: Nortriptyline CAP* 10 MG PO SCH (21:00)
--- NOTE | 2018-07-15 21:44 | DS ---
CC: Dr. Irma Garcia; Carlos Ortiz NP; Dr. Rader; Dr. Almendarez* DISCHARGE SUMMARY: DATE OF ADMISSION: 07/09/18. DATE OF DISCHARGE: 07/15/18. PRIMARY CARE PROVIDER: Dr. Irma Garcia and Carlos Ortiz NP ATTENDING PHYSICIAN: Dr. Meléndez* (dictated by Natasha Ortega NP). OUTPATIENT BATTERY TESTER: Dr. Rader. OUTPATIENT SUBWAY TRAIN DRIVER: Dr. Almendarez. PRIMARY DIAGNOSES: 1. Heart failure. 2. Ventricular tachycardia. 3. Coronary artery disease. 4. Chronic obstructive pulmonary disease . 5. Hypertension. 6. Shortness of breath. HISTORY OF PRESENT ILLNESS/HOSPITAL COURSE: Mrs. Sumner is a 87-year-old female with past medical history significant for COPD who is on 2 to 3 L nasal cannula at baseline, heart failure, CAD, [place] without intervention, anxiety, and depression, right hip hemiarthroplasty, right total knee replacement; who presented to emergency department on 07/09/18 with complaints of cough and shortness of breath. Please see history and physical dictated by Dr. Clarita Thornton for complete summary of events leading up to the patient's hospitalization, but in short the patient presented to the emergency room with complaints of cough and shortness of breath with exertion. While in the emergency room, the patient was found to have an exacerbation of her COPD. Therefore, she was admitted for further evaluation and treatment. The patient received nebulizers and oral steroids during this hospital stay. In addition, given her shortness of breath a transthoracic echo was also ordered. While admitted, the patient's hospitalization was complicated as she was noted to have a 15 beat run of V-tach possibly symptomatic on 07/13/18. The patient's electrolytes were maximized. The patient's echo was reviewed by Cardiology and the patient remained in the hospital for further evaluation. The patient has not had any repeat episodes of ventricular tachycardia while on telemetry. Cardiology was consulted and the patient's previous echo and nuclear study were reviewed. Cardiology reports that the patient's EF was normal on April 2018 and is now noted to be reduced at 35% to 40%. These findings are suggestive of a reversible process, therefore, it was recommended that the patient undergo medical maximization and a repeat echo as an outpatient. The patient is stable for discharge home today. Vital Signs: Temp 97.9, HR 57, RR 20, O2 saturation 99% on 2 L, BP 157/47. REVIEW OF SYSTEMS: The patient reports some dyspnea with exertion, which is her baseline. The patient denies chest pain, palpitation, nausea, vomiting, dizziness, palpitations. A 14-point review of systems was completed and all were negative. PHYSICAL EXAM: General: Mrs. Sumner is a 87-year-old female who is sitting in the chair. Appears to be in no acute distress. Appears stated age. HEENT: EOMs intact. PERRLA. Oral mucosa is moist without lesion. Posterior pharynx is clear. Neck: Supple. No lymphadenopathy. Respiratory: Scant expiratory wheezing noted otherwise lungs are clear to auscultation. Good aeration. No rhonchi or rubs. Cardiac: S1, S2 present. Regular rate and rhythm. No murmurs, rubs or gallops. Abdomen: Soft, nontender. Bowel normoactive throughout. Extremities: No edema. No clubbing or cyanosis. Pedal pulses are 2+ bilaterally. Musculoskeletal: No pain deformities. Skin: Grossly intact, no lesions. Neuro: No focal deficits or weakness. DIAGNOSTIC STUDIES/LAB DATA: WBC 6.3, hemoglobin 12.3, hematocrit 36, platelet 200. Sodium 134, potassium 4.3, chloride 98, carbon dioxide 31, BUN 43, creatinine 1.20, magnesium 2.0 Chest x-ray: Impression: Probable bronchopneumonia superimposed on COPD. Transthoracic echo: Impression: Systolic function moderately reduced. EF 35% to 40%. D-shape left ventricle consistent with right ventricular overload. Mild stenosis and mild regurgitation of mitral valve. [id number] stenosis of aortic valve. Mild regurgitation of tricuspid valve. DISCHARGE PLANS: 1. Shortness of breath: As mentioned above, the patient was admitted with a diagnosis of COPD exacerbation. It was also suspected that the patient had acute on chronic systolic heart failure exacerbation, given she had an elevated BNP. The patient was diuresed successfully with Lasix IV. The patient is euvolemic today. As for the COPD exacerbation, the patient completed course of steroids and is breathing at her baseline. She is also on supplemental oxygen at her baseline. Finally, it should also be mentioned that given the patient's echo findings of a D- shaped ventricle, we did complete a D-dimer, which was 206. Given the result of the D-dimer of 206 and the patient improvement, CTA or other known imaging was not obtained. As for followup, the patient should follow up with Dr. Almendarez as she established with her. The patient should continue her home inhalers. The patient should continue her supplemental oxygen. 2. Heart failure: As mentioned above, the patient had an echo which revealed reduced ejection fraction of 35% to 40%. Cardiology reviewed her nuclear study , which was completed in April 2018 and noted a normal EF. Cardiology is suggesting that patient has reversible process and recommending medical maximization. Specifically, Cardiology recommends patient be stopped on amlodipine and started on YOCASTA and ARB. Therefore, the patient was given instructions that starting tomorrow, she will no longer take amlodipine and she will start lisinopril 10 mg p.o. daily. The patient is already on a beta- jared to maximize heart failure treatment. The patient would also benefit from Lasix and/or Aldactone in the future. I have not started the patient on that today as she is euvolemic and possibly on the dry side given an elevated BUN of 43 and a creatinine of 1.20. I would encourage the patient to discuss the addition of a Lasix or Aldactone with her licensed journeyman electrician at their followup. Dr. Thibodeaux will be contacted in the office to have her see a nurse practitioner this week or early next week. At this time, they can review her medications and also repeat her echocardiogram. 3. Ventricular tachycardia: As mentioned in the HPI, the patient did have a 14 to 15 possibly symptomatic run of VT on 07/13/18. We suspect this can be secondary to her reduced ejection fraction, but to be safe, we have also discussed reducing and eliminating drugs that could increase ectopy. Specifically, I have encouraged the patient to taper down her nortriptyline with eventually discontinuing it. The patient was encouraged to try melatonin for sleep instead. In addition, the patient was encouraged to follow up with her pricing manager Dr. Almendarez to discuss possibly stopping Spiriva and replacing it with another agent. Spiriva is also a medication that could increase ectopy. 4. COPD: As mentioned above, the patient is to follow up with Dr. Almendarez, continue her supplemental amoxicillin, continue inhalers. 5. Hypertension: The patient has been normotensive while here in the hospital. The patient should continue her Imdur and metoprolol. The patient should stop her amlodipine and instead take lisinopril 10 mg p.o. daily, which have been sent to her pharmacy. The patient to follow up with Cardiology and have her blood pressure rechecked. 6. Education: The patient and family are educated at length about signs and symptoms with no worsening condition and when to return to the emergency department. All stated understanding. This is a summarized report of a complex medical history and hospital stay. For further details please see the entire medical record. TIME SPENT: Approximately 40 minutes were spent on this discharge, greater than half of that time spent face to face with the patient discussing discharge plans and instructions. This plan was also discussed with my attending, Dr. Meléndez, who is in agreement with my plan of care. NATASHA ORTEGA, EVELYN [id number]/[facility] #: [id number] AGATHA
== END 2018-07-15 13:43 | disposition home health service (06) | DRG 190 ==
LOC: ED 12:02 → MEDTELE 16:16
PROVIDERS: ADMIT Internal Medicine; ATTEND Internal Medicine
DX: J44.1 Chronic obstructive pulmonary disease with (acute) exacerbation (principal); I50.23 Acute on chronic systolic (congestive) heart failure; I47.2 Ventricular tachycardia; N17.9 Acute kidney failure, unspecified; I11.0 Hypertensive heart disease with heart failure; I25.10 Atherosclerotic heart disease of native coronary artery without angina pectoris; F41.9 Anxiety disorder, unspecified; F32.9 Major depressive disorder, single episode, unspecified; L40.9 Psoriasis, unspecified; Z66 Do not resuscitate; I25.5 Ischemic cardiomyopathy; I08.2 Rheumatic disorders of both aortic and tricuspid valves; M54.5 Low back pain; E78.5 Hyperlipidemia, unspecified; Z96.651 Presence of right artificial knee joint; Z96.641 Presence of right artificial hip joint; Z99.81 Dependence on supplemental oxygen; I25.2 Old myocardial infarction; Z79.51 Long term (current) use of inhaled steroids; Z79.899 Other long term (current) drug therapy; Z82.49 Family history of ischemic heart disease and other diseases of the circulatory system; Z82.3 Family history of stroke; Z87.891 Personal history of nicotine dependence; Z83.3 Family history of diabetes mellitus; I44.7 Left bundle-branch block, unspecified
CPT/HCPCS: 36415; 71046; 80048; 80053; 82565; 82607; 82746; 83605; 83735; 83880; 84145; 84484; 84520; 85025; 85379; 85610; 86140; 87040; 87070; 87205; 87899; 93005; 93306; 94640; 99284; A9270-GY; G8978-GP-CI; G8979-GP-CI; G8980-GP-CI; J1650; J1940; J2930; J3475; J7512

== ENCOUNTER 2020-04-15 11:48 | Inpatient (IN) ==
[2020-04-15 12:28] LABS: ABS Eosinophils 0.1 10^3/ul (0-0.6); ABS Lymphocytes 1.4 10^3/ul (1.0-4.8); ABS Monocytes 0.7 10^3/ul (0-0.8); ABS Neutrophils 4.9 10^3/ul (1.5-7.7); Eosinophil % 1.5 %; Hematocrit 40 % (35-47); Hemoglobin 13.1 g/dL (12.0-16.0); Mean Corpuscular HGB Conc 33 g/dL (31-36); Mean Corpuscular Hemoglobin 30 pg (27-31); Mean Corpuscular Volume 91 fL (80-97); Mean Platelet Volume 8.6 fL (7.4-10.4); Platelet Count 162 10^3/uL (150-450); Red Blood Count 4.45 10^6 /uL (3.70-4.87); Red Cell Distribution Width 15 % (10-15); White Blood Count 7.2 10^3/uL (3.5-10.8)
[2020-04-15] MEDS ORDERED: Furosemide 40 mg/4 ml IV VIAL IV ONE (12:34)
[2020-04-15 12:43] LABS: ALT 26 U/L (7-52); Albumin 4.1 g/dL (3.2-5.2); Albumin/Globulin Ratio 1.4 (1-3); Alkaline Phosphatase 76 U/L (34-104); BUN/Creatinine Ratio 16.7 (8-20); Blood Urea Nitrogen 18 mg/dL (6-24); CO2 Carbon Dioxide 30 mmol/L (22-32); Chloride 101 mmol/L (101-111); EGFR African American 57.8 (>60); EGFR Non-African American 47.8 (>60); Glucose 104 mg/dL (70-100); Magnesium 1.8 mg/dL (1.9-2.7); Sodium 136 mmol/L (135-145); Total Protein 7.1 g/dL (6.4-8.9)
[2020-04-15 12:53] LABS: Anion Gap 5 mmol/L (2-11)
[2020-04-15 13:32] LABS: Urine Appearance Clear; Urine Bilirubin Negative (Negative); Urine Blood Negative (Negative); Urine Color Yellow; Urine Glucose Negative (Negative); Urine Ketones Negative (Negative); Urine Nitrite Negative (Negative); Urine Protein 2+(100 mg/dL) (Negative); Urine Specific Gravity 1.009 (1.010-1.030); Urine Urobilinogen Negative (Negative)
[2020-04-15 13:38] LABS: Urine Bacteria Absent (Absent); Urine Red Blood Cell Trace(0-2/hpf) (Absent); Urine Squamous Epithelial Cell Present (Absent); Urine White Blood Cell 1+(6-10/hpf) (Absent)
[2020-04-15 15:37] LABS: Troponin I 0.03 ng/mL (<0.03)
[2020-04-15] MEDS ORDERED: Furosemide 20 mg/2 ml IV VIAL IV ONE ×2 (16:30→21:00)
[2020-04-15] MEDS: Mometasone/Formoter 100/5 MDI INH SCH (19:24)
[2020-04-15] MEDS: Isosorbide Mononit ER 30mg TAB PO SCH (20:37)
[2020-04-15] MEDS: Enoxaparin 30 MG/0.3 ML SYR SUBCUT SCH (20:38)
[2020-04-16 05:09] LABS: Anion Gap 4 mmol/L (2-11); BUN/Creatinine Ratio 17.8 (8-20); Blood Urea Nitrogen 21 mg/dL (6-24); CO2 Carbon Dioxide 36 mmol/L (22-32); Calcium 9.9 mg/dL (8.6-10.3); Chloride 100 mmol/L (101-111); EGFR African American 52.2 (>60); EGFR Non-African American 43.1 (>60); Glucose 89 mg/dL (70-100); Magnesium 1.6 mg/dL (1.9-2.7); Sodium 140 mmol/L (135-145)
[2020-04-16] MEDS ORDERED: Furosemide 40 mg/4 ml IV VIAL IV SLOW PU ONE (05:31)
[2020-04-16 06:07] LABS: Troponin I 0.05 ng/mL (<0.03)
[2020-04-16] MEDS: Mometasone/Formoter 100/5 MDI INH SCH ×2 (08:22→19:31)
[2020-04-16] MEDS ORDERED: Isosorbide Mononit ER 30mg TAB PO SCH (09:00)
[2020-04-16 09:38] LABS: Troponin I 0.05 ng/mL (<0.03)
[2020-04-16] MEDS: Isosorbide Mononit ER 30mg TAB PO SCH (11:45)
[2020-04-16] MEDS: Cholecalciferol (VIT D3) 1,000 unit TAB PO SCH (11:46)
[2020-04-16] MEDS ORDERED: Furosemide 40 mg/4 ml IV VIAL IV ONE ×4 (13:00→18:00)
[2020-04-16] MEDS: Enoxaparin 30 MG/0.3 ML SYR SUBCUT SCH (13:42)
[2020-04-17 05:36] LABS: BUN/Creatinine Ratio 17.4 (8-20); Calcium 9.4 mg/dL (8.6-10.3); EGFR African American 53.8 (>60); EGFR Non-African American 44.4 (>60); Potassium 4.1 mmol/L (3.5-5.0)
[2020-04-17] MEDS: Mometasone/Formoter 100/5 MDI INH SCH ×2 (08:45→19:37)
[2020-04-17 08:49] LABS: Magnesium 1.8 mg/dL (1.9-2.7)
[2020-04-17] MEDS: Isosorbide Mononit ER 30mg TAB PO SCH (09:20)
[2020-04-17] MEDS: Cholecalciferol (VIT D3) 1,000 unit TAB PO SCH (09:25)
[2020-04-17] MEDS ORDERED: Furosemide 20 mg/2 ml IV VIAL IV SLOW PU ONE (10:04)
[2020-04-17] MEDS ORDERED: Magnesium Sulfate IV 1GM/100ML 1 GM/100 ML BAG IV ONE (13:37)
[2020-04-17] MEDS: Enoxaparin 30 MG/0.3 ML SYR SUBCUT SCH (14:07)
[2020-04-18 07:49] LABS: ABS Basophils 0.1 10^3/ul (0-0.2); ABS Eosinophils 0.3 10^3/ul (0-0.6); ABS Lymphocytes 1.7 10^3/ul (1.0-4.8); ABS Monocytes 0.9 10^3/ul (0-0.8); ABS Neutrophils 3.6 10^3/ul (1.5-7.7); Hematocrit 40 % (35-47); Hemoglobin 12.9 g/dL (12.0-16.0); Lymphocyte % 26.4 %; Mean Corpuscular HGB Conc 33 g/dL (31-36); Mean Corpuscular Hemoglobin 30 pg (27-31); Mean Corpuscular Volume 90 fL (80-97); Nucleated Red Blood Cells % 0.1; Platelet Count 158 10^3/uL (150-450); Red Blood Count 4.38 10^6 /uL (3.70-4.87); Red Cell Distribution Width 15 % (10-15); White Blood Count 6.4 10^3/uL (3.5-10.8)
[2020-04-18] MEDS: Mometasone/Formoter 100/5 MDI INH SCH ×2 (08:00→19:56)
[2020-04-18 08:04] LABS: BUN/Creatinine Ratio 17.3 (8-20); Calcium 10.3 mg/dL (8.6-10.3); EGFR African American 43.2 (>60); EGFR Non-African American 35.7 (>60); Potassium 4.5 mmol/L (3.5-5.0)
[2020-04-18] MEDS: Cholecalciferol (VIT D3) 1,000 unit TAB PO SCH (08:37)
[2020-04-18] MEDS: Isosorbide Mononit ER 30mg TAB PO SCH (08:37)
[2020-04-18] MEDS ORDERED: Furosemide 20 mg/2 ml IV VIAL IV SLOW PU SCH (15:00)
[2020-04-18] MEDS: Enoxaparin 30 MG/0.3 ML SYR SUBCUT SCH (15:20)
[2020-04-18] MEDS: Albuterol HFA INHALER 8 gm MDI INH PRN (19:56)
[2020-04-19] MEDS: Mometasone/Formoter 100/5 MDI INH SCH ×2 (07:46→20:06)
[2020-04-19 07:56] LABS: ABS Basophils 0.1 10^3/ul (0-0.2); ABS Eosinophils 0.3 10^3/ul (0-0.6); ABS Lymphocytes 1.9 10^3/ul (1.0-4.8); ABS Monocytes 1.1 10^3/ul (0-0.8); ABS Neutrophils 4.3 10^3/ul (1.5-7.7); Eosinophil % 3.8 %; Hematocrit 40 % (35-47); Hemoglobin 13.3 g/dL (12.0-16.0); Lymphocyte % 24.4 %; Mean Corpuscular HGB Conc 33 g/dL (31-36); Mean Corpuscular Hemoglobin 30 pg (27-31); Mean Corpuscular Volume 89 fL (80-97); Mean Platelet Volume 8.1 fL (7.4-10.4); Nucleated Red Blood Cells % 0.1; Platelet Count 161 10^3/uL (150-450); Red Blood Count 4.48 10^6 /uL (3.70-4.87); Red Cell Distribution Width 15 % (10-15); White Blood Count 7.7 10^3/uL (3.5-10.8)
[2020-04-19 08:08] LABS: BUN/Creatinine Ratio 19.6 (8-20); Calcium 10.3 mg/dL (8.6-10.3); EGFR African American 37.3 (>60); EGFR Non-African American 30.8 (>60); Potassium 4.2 mmol/L (3.5-5.0)
[2020-04-19] MEDS ORDERED: Potassium Chloride LIQUID 20 MEQ/15 ML LIQUID PO ONE (08:10)
[2020-04-19] MEDS: Isosorbide Mononit ER 30mg TAB PO SCH (09:11)
[2020-04-19] MEDS: Cholecalciferol (VIT D3) 1,000 unit TAB PO SCH (09:11)
[2020-04-19] MEDS: Enoxaparin 30 MG/0.3 ML SYR SUBCUT SCH (14:15)
[2020-04-19 17:01] LABS: BUN/Creatinine Ratio 21.8 (8-20); Calcium 10.1 mg/dL (8.6-10.3); EGFR African American 33.3 (>60); EGFR Non-African American 27.5 (>60)
[2020-04-19 17:05] LABS: Potassium 5.1 mmol/L (3.5-5.0)
[2020-04-19] MEDS ORDERED: NS 0.9% 500 ml BAG 500 ML IV SCH (18:00)
[2020-04-20] MEDS: Cholecalciferol (VIT D3) 1,000 unit TAB PO SCH (07:42)
[2020-04-20] MEDS: Isosorbide Mononit ER 30mg TAB PO SCH (07:45)
[2020-04-20] MEDS: Mometasone/Formoter 100/5 MDI INH SCH ×2 (09:07→20:00)
[2020-04-20] MEDS: SPIRIVA Respimat (tiotropium) 2.5 mcg/inh Inhaler INH SCH (09:08)
[2020-04-20 09:12] LABS: BUN/Creatinine Ratio 23.5 (8-20); Calcium 10.4 mg/dL (8.6-10.3); EGFR African American 39.9 (>60); Potassium 4.6 mmol/L (3.5-5.0)
[2020-04-20] MEDS: Enoxaparin 30 MG/0.3 ML SYR SUBCUT SCH (14:34)
[2020-04-20] MEDS ORDERED: Morphine ORAL CONCENTRATE 5 MG/0.25 ML ORAL.SYRIN SL PRN (16:22)
[2020-04-20] MEDS: Albuterol HFA INHALER 8 gm MDI INH PRN (20:00)
[2020-04-21 07:42] LABS: BUN/Creatinine Ratio 28.4 (8-20); Calcium 10.8 mg/dL (8.6-10.3); EGFR African American 32.9 (>60); EGFR Non-African American 27.2 (>60)
[2020-04-21 07:46] LABS: Potassium 5.2 mmol/L (3.5-5.0)
[2020-04-21] MEDS: Mometasone/Formoter 100/5 MDI INH SCH ×2 (08:57→19:28)
[2020-04-21] MEDS: SPIRIVA Respimat (tiotropium) 2.5 mcg/inh Inhaler INH SCH (08:58)
[2020-04-21] MEDS ORDERED: Morphine ORAL.SOLN 10 mg 2 mg/ml UDC 5 ml (10 mg) PO PRN ×2 (10:03→10:33)
[2020-04-21] MEDS: Isosorbide Mononit ER 30mg TAB PO SCH (10:29)
[2020-04-21] MEDS: Cholecalciferol (VIT D3) 1,000 unit TAB PO SCH (10:30)
[2020-04-21] MEDS: Enoxaparin 30 MG/0.3 ML SYR SUBCUT SCH (14:04)
[2020-04-22 06:04] LABS: BUN/Creatinine Ratio 26.4 (8-20); EGFR Non-African American 19.9 (>60); Potassium 4.7 mmol/L (3.5-5.0)
[2020-04-22] MEDS ORDERED: NS 0.9% 1000 ml BAG 1,000 ML IV ONE (07:07)
[2020-04-22] MEDS: Mometasone/Formoter 100/5 MDI INH SCH ×2 (08:38→20:04)
[2020-04-22] MEDS: SPIRIVA Respimat (tiotropium) 2.5 mcg/inh Inhaler INH SCH (08:39)
[2020-04-22] MEDS: Isosorbide Mononit ER 30mg TAB PO SCH (08:43)
[2020-04-22] MEDS: Cholecalciferol (VIT D3) 1,000 unit TAB PO SCH (08:45)
[2020-04-22 12:42] LABS: BUN/Creatinine Ratio 27.8 (8-20); Calcium 9.4 mg/dL (8.6-10.3); EGFR African American 26.5 (>60); EGFR Non-African American 21.9 (>60); Potassium 4.4 mmol/L (3.5-5.0)
[2020-04-22] MEDS: Enoxaparin 30 MG/0.3 ML SYR SUBCUT SCH (15:28)
[2020-04-22 20:47] LABS: Urine Appearance Cloudy; Urine Bilirubin Negative (Negative); Urine Blood 2+ (Negative); Urine Color Yellow; Urine Glucose Negative (Negative); Urine Ketones Negative (Negative); Urine Nitrite Negative (Negative); Urine Protein Negative (Negative); Urine Specific Gravity 1.013 (1.010-1.030); Urine Urobilinogen Negative (Negative)
[2020-04-22 20:55] LABS: Urine Bacteria 1+ (Absent); Urine Granular Casts Present (Absent); Urine Red Blood Cell 2+(6-10/hpf) (Absent); Urine Squamous Epithelial Cell Present (Absent); Urine White Blood Cell 3+(>20/hpf) (Absent)
[2020-04-23 05:27] LABS: BUN/Creatinine Ratio 30.5 (8-20); Calcium 9.4 mg/dL (8.6-10.3); EGFR African American 27.9 (>60); EGFR Non-African American 23.1 (>60); Magnesium 2.3 mg/dL (1.9-2.7); Potassium 4.8 mmol/L (3.5-5.0)
[2020-04-23] MEDS: Isosorbide Mononit ER 30mg TAB PO SCH (09:18)
[2020-04-23] MEDS: Cholecalciferol (VIT D3) 1,000 unit TAB PO SCH (09:18)
[2020-04-23] MEDS: Mometasone/Formoter 100/5 MDI INH SCH ×2 (10:26→19:41)
[2020-04-23] MEDS: SPIRIVA Respimat (tiotropium) 2.5 mcg/inh Inhaler INH SCH (10:27)
[2020-04-23] MEDS: Enoxaparin 30 MG/0.3 ML SYR SUBCUT SCH (14:26)
[2020-04-23] MEDS ORDERED: NS 0.9% 500 ml BAG 500 ML IV SCH (22:00)
[2020-04-24 06:27] LABS: ABS Basophils 0.1 10^3/ul (0-0.2); ABS Eosinophils 0.2 10^3/ul (0-0.6); ABS Lymphocytes 1.4 10^3/ul (1.0-4.8); ABS Monocytes 0.6 10^3/ul (0-0.8); ABS Neutrophils 2.9 10^3/ul (1.5-7.7); Eosinophil % 4.2 %; Hematocrit 37 % (35-47); Hemoglobin 12.1 g/dL (12.0-16.0); Lymphocyte % 27.8 %; Mean Corpuscular HGB Conc 33 g/dL (31-36); Mean Corpuscular Hemoglobin 30 pg (27-31); Mean Corpuscular Volume 90 fL (80-97); Mean Platelet Volume 7.9 fL (7.4-10.4); Platelet Count 144 10^3/uL (150-450); Red Blood Count 4.08 10^6 /uL (3.70-4.87); Red Cell Distribution Width 16 % (10-15); White Blood Count 5.1 10^3/uL (3.5-10.8)
[2020-04-24 06:47] LABS: BUN/Creatinine Ratio 35.4 (8-20); Calcium 10.1 mg/dL (8.6-10.3); EGFR African American 36.5 (>60); EGFR Non-African American 30.1 (>60); Potassium 4.4 mmol/L (3.5-5.0)
[2020-04-24] MEDS: Mometasone/Formoter 100/5 MDI INH SCH ×3 (09:21→20:39)
[2020-04-24] MEDS: SPIRIVA Respimat (tiotropium) 2.5 mcg/inh Inhaler INH SCH (09:21)
[2020-04-24] MEDS: Cholecalciferol (VIT D3) 1,000 unit TAB PO SCH (09:44)
[2020-04-24] MEDS: Isosorbide Mononit ER 30mg TAB PO SCH (09:44)
[2020-04-24] MEDS ORDERED: Nitrofurantoin (monohydrate/macrocrystals) 100 mg CAP PO SCH (10:00)
[2020-04-24] MEDS ORDERED: Senna TAB 8.6 mg TAB PO PRN (14:51)
[2020-04-24] MEDS: Enoxaparin 30 MG/0.3 ML SYR SUBCUT SCH (15:02)
[2020-04-25 06:05] LABS: ABS Basophils 0.1 10^3/ul (0-0.2); ABS Eosinophils 0.2 10^3/ul (0-0.6); ABS Lymphocytes 1.6 10^3/ul (1.0-4.8); ABS Monocytes 0.6 10^3/ul (0-0.8); Hematocrit 37 % (35-47); Hemoglobin 12.2 g/dL (12.0-16.0); Lymphocyte % 28.7 %; Mean Corpuscular HGB Conc 33 g/dL (31-36); Mean Corpuscular Hemoglobin 30 pg (27-31); Mean Corpuscular Volume 89 fL (80-97); Mean Platelet Volume 7.9 fL (7.4-10.4); Nucleated Red Blood Cells % 0.1; Platelet Count 149 10^3/uL (150-450); Red Cell Distribution Width 15 % (10-15); White Blood Count 5.5 10^3/uL (3.5-10.8)
[2020-04-25] MEDS: Mometasone/Formoter 100/5 MDI INH SCH ×2 (06:13→07:32)
[2020-04-25] MEDS: SPIRIVA Respimat (tiotropium) 2.5 mcg/inh Inhaler INH SCH ×2 (06:15→07:33)
[2020-04-25 06:24] LABS: BUN/Creatinine Ratio 36.8 (8-20); Calcium 10.1 mg/dL (8.6-10.3); EGFR Non-African American 32.2 (>60); Potassium 4.6 mmol/L (3.5-5.0)
[2020-04-25] MEDS ORDERED: Polyethylene Glycol 3350 17 GM PACKET PO SCH (09:00)
[2020-04-25] MEDS: Isosorbide Mononit ER 30mg TAB PO SCH (09:23)
[2020-04-25] MEDS: Cholecalciferol (VIT D3) 1,000 unit TAB PO SCH (09:24)
[2020-04-25 12:54] VITALS: BP 146/64
== END 2020-04-25 15:15 | disposition home health service (06) | DRG 291 ==
LOC: ED 11:48 → MEDTELE 11:48 → SUATTDRO 04-16 13:20 → MEDTELE 04-16 15:16
PROVIDERS: ADMIT Internal Medicine; ATTEND Internal Medicine

== ENCOUNTER 2020-05-21 13:37 | Inpatient (IN) ==
[2020-05-21] MEDS ORDERED: Albuterol HFA INHALER 8 gm MDI INH ONE (14:13)
[2020-05-21 15:15] LABS: ABS Basophils 0.1 10^3/ul (0-0.2); ABS Eosinophils 0.1 10^3/ul (0-0.6); ABS Neutrophils 4.9 10^3/ul (1.5-7.7); Hematocrit 37 % (35-47); Hemoglobin 11.8 g/dL (12.0-16.0); Mean Corpuscular HGB Conc 32 g/dL (31-36); Mean Corpuscular Hemoglobin 30 pg (27-31); Mean Corpuscular Volume 92 fL (80-97); Mean Platelet Volume 7.9 fL (7.4-10.4); Platelet Count 129 10^3/uL (150-450); Red Blood Count 3.99 10^6 /uL (3.70-4.87); Red Cell Distribution Width 16 % (10-15); White Blood Count 6.9 10^3/uL (3.5-10.8)
[2020-05-21 15:34] LABS: ALT 41 U/L (7-52); AST 56 U/L (13-39); Albumin 4.1 g/dL (3.2-5.2); Albumin/Globulin Ratio 1.6 (1-3); Alkaline Phosphatase 80 U/L (34-104); Anion Gap 6 mmol/L (2-11); BUN/Creatinine Ratio 25.2 (8-20); Blood Urea Nitrogen 30 mg/dL (6-24); CO2 Carbon Dioxide 29 mmol/L (22-32); Calcium 10.1 mg/dL (8.6-10.3); Chloride 105 mmol/L (101-111); EGFR African American 51.7 (>60); EGFR Non-African American 42.7 (>60); Globulin 2.6 g/dL (2-4); Glucose 77 mg/dL (70-100); Magnesium 1.9 mg/dL (1.9-2.7); Potassium 4.7 mmol/L (3.5-5.0); Sodium 140 mmol/L (135-145); Total Protein 6.7 g/dL (6.4-8.9)
[2020-05-21 15:47] LABS: Troponin I 0.04 ng/mL (<0.03)
[2020-05-21] MEDS ORDERED: Furosemide 40 mg/4 ml IV VIAL IV ONE (15:51)
[2020-05-21] MEDS ORDERED: nitroGLYCERIN DRIP 25,000 MCG/250 ML BTL IV ONE (16:46)
[2020-05-21] MEDS ORDERED: Nitro 2% OINT (Nitroglycerin) 1 INCH/PAK TOPICAL ONE (17:09)
[2020-05-21] MEDS ORDERED: Iodixanol (CONTRAST) 320 MG/ML 100 ML SDV IV ONE (18:09)
[2020-05-21 18:15] LABS: Influenza A Molecular Negative (Negative); Influenza B Molecular Negative (Negative)
[2020-05-21] MEDS: Albuterol HFA INHALER 8 gm MDI INH SCH ×2 (18:18→23:21)
[2020-05-21 18:21] LABS: Troponin I 0.04 ng/mL (<0.03)
[2020-05-21] MEDS ORDERED: hydrALAZINE 20 mg/ml 1 ML Vial IV IV SLOW PU ONE (18:32)
[2020-05-21] MEDS ORDERED: hydrALAZINE 20 mg/ml 1 ML Vial IV IV SLOW PU PRN (18:50)
[2020-05-21 19:40] LABS: Urine Appearance Clear; Urine Bilirubin Negative (Negative); Urine Blood Negative (Negative); Urine Color Yellow; Urine Glucose Negative (Negative); Urine Ketones Negative (Negative); Urine Nitrite Negative (Negative); Urine Protein Negative (Negative); Urine Specific Gravity 1.009 (1.002-1.030); Urine Urobilinogen Negative (Negative)
[2020-05-21] MEDS: Heparin 5000 UNITS/ML 1 mL VIAL SUBCUT SCH (20:52)
[2020-05-21] MEDS: Furosemide 40 mg/4 ml IV VIAL IV SLOW PU SCH (20:52)
[2020-05-21 21:45] LABS: Troponin I 0.05 ng/mL (<0.03)
[2020-05-22 02:22] LABS: Troponin I 0.05 ng/mL (<0.03)
[2020-05-22] MEDS: Albuterol HFA INHALER 8 gm MDI INH SCH ×4 (02:45→20:07)
[2020-05-22] MEDS: Heparin 5000 UNITS/ML 1 mL VIAL SUBCUT SCH ×3 (04:53→21:30)
[2020-05-22 05:32] LABS: ABS Basophils 0.1 10^3/ul (0-0.2); ABS Eosinophils 0.1 10^3/ul (0-0.6); ABS Lymphocytes 1.6 10^3/ul (1.0-4.8); ABS Neutrophils 4.1 10^3/ul (1.5-7.7); Eosinophil % 1.8 %; Hematocrit 35 % (35-47); Hemoglobin 11.7 g/dL (12.0-16.0); Lymphocyte % 23.7 %; Mean Corpuscular HGB Conc 34 g/dL (31-36); Mean Corpuscular Hemoglobin 30 pg (27-31); Mean Corpuscular Volume 89 fL (80-97); Mean Platelet Volume 7.8 fL (7.4-10.4); Nucleated Red Blood Cells % 0.1; Platelet Count 129 10^3/uL (150-450); Red Cell Distribution Width 15 % (10-15); White Blood Count 6.8 10^3/uL (3.5-10.8)
[2020-05-22 05:45] LABS: BUN/Creatinine Ratio 23.5 (8-20); Calcium 10.1 mg/dL (8.6-10.3); EGFR African American 45.9 (>60); EGFR Non-African American 37.9 (>60); Potassium 3.6 mmol/L (3.5-5.0)
[2020-05-22] MEDS: Mometasone/Formoter 100/5 MDI INH SCH ×2 (08:43→20:08)
[2020-05-22] MEDS: SPIRIVA Respimat (tiotropium) 2.5 mcg/inh Inhaler INH SCH (08:44)
[2020-05-22] MEDS: Isosorbide Mononit ER 30mg TAB PO SCH (08:56)
[2020-05-22] MEDS: Cholecalciferol (VIT D3) 1,000 unit TAB PO SCH (08:56)
[2020-05-22] MEDS: Furosemide 40 mg/4 ml IV VIAL IV SLOW PU SCH ×2 (08:56→17:23)
[2020-05-22] MEDS: Potassium Chlor 10 meq TAB PO SCH (08:57)
[2020-05-23] MEDS: Albuterol HFA INHALER 8 gm MDI INH SCH ×4 (01:11→19:10)
[2020-05-23] MEDS: hydrALAZINE 20 mg/ml 1 ML Vial IV IV SLOW PU PRN (03:53)
[2020-05-23] MEDS: Heparin 5000 UNITS/ML 1 mL VIAL SUBCUT SCH ×3 (05:35→20:19)
[2020-05-23 05:51] LABS: BUN/Creatinine Ratio 23.7 (8-20); Calcium 10.1 mg/dL (8.6-10.3); EGFR African American 37.8 (>60); EGFR Non-African American 31.2 (>60); Potassium 3.9 mmol/L (3.5-5.0)
[2020-05-23] MEDS: Potassium Chlor 10 meq TAB PO SCH (07:49)
[2020-05-23] MEDS: Cholecalciferol (VIT D3) 1,000 unit TAB PO SCH (07:49)
[2020-05-23] MEDS: Isosorbide Mononit ER 30mg TAB PO SCH (07:49)
[2020-05-23] MEDS: Furosemide 40 mg/4 ml IV VIAL IV SLOW PU SCH (07:49)
[2020-05-23] MEDS: SPIRIVA Respimat (tiotropium) 2.5 mcg/inh Inhaler INH SCH (07:52)
[2020-05-23] MEDS: Mometasone/Formoter 100/5 MDI INH SCH ×2 (07:52→19:10)
[2020-05-23] MEDS ORDERED: Albuterol/Ipratropium NEB.SOL (2.5/0.5 MG) 3 ML NEB.SOLN INH PRN (09:47)
[2020-05-24] MEDS: Albuterol HFA INHALER 8 gm MDI INH SCH ×4 (01:18→19:36)
[2020-05-24] MEDS: Heparin 5000 UNITS/ML 1 mL VIAL SUBCUT SCH ×3 (05:33→21:39)
[2020-05-24 06:04] LABS: ABS Eosinophils 0.1 10^3/ul (0-0.6); ABS Lymphocytes 1.5 10^3/ul (1.0-4.8); ABS Monocytes 1.3 10^3/ul (0-0.8); ABS Neutrophils 6.7 10^3/ul (1.5-7.7); Eosinophil % 0.6 %; Hematocrit 38 % (35-47); Hemoglobin 12.4 g/dL (12.0-16.0); Lymphocyte % 15.9 %; Mean Corpuscular HGB Conc 33 g/dL (31-36); Mean Corpuscular Hemoglobin 30 pg (27-31); Mean Corpuscular Volume 90 fL (80-97); Mean Platelet Volume 7.8 fL (7.4-10.4); Nucleated Red Blood Cells % 0.1; Platelet Count 162 10^3/uL (150-450); Red Blood Count 4.19 10^6 /uL (3.70-4.87); Red Cell Distribution Width 16 % (10-15); White Blood Count 9.6 10^3/uL (3.5-10.8)
[2020-05-24 06:21] LABS: BUN/Creatinine Ratio 26.8 (8-20); Calcium 9.9 mg/dL (8.6-10.3); EGFR African American 37.5 (>60); Potassium 4.1 mmol/L (3.5-5.0)
[2020-05-24] MEDS: SPIRIVA Respimat (tiotropium) 2.5 mcg/inh Inhaler INH SCH (07:14)
[2020-05-24] MEDS: Mometasone/Formoter 100/5 MDI INH SCH ×2 (07:14→19:38)
[2020-05-24] MEDS: Isosorbide Mononit ER 30mg TAB PO SCH (08:19)
[2020-05-24] MEDS: Potassium Chlor 10 meq TAB PO SCH (08:20)
[2020-05-24] MEDS: Cholecalciferol (VIT D3) 1,000 unit TAB PO SCH (08:20)
[2020-05-24] MEDS: Furosemide 40 mg/4 ml IV VIAL IV SLOW PU SCH (08:24)
[2020-05-24] MEDS ORDERED: Furosemide 40 mg/4 ml IV VIAL IV SLOW PU ONE (15:00)
[2020-05-24] MEDS: hydrALAZINE 20 mg/ml 1 ML Vial IV IV SLOW PU PRN (23:55)
[2020-05-25] MEDS: Albuterol HFA INHALER 8 gm MDI INH SCH ×4 (00:37→19:41)
[2020-05-25] MEDS: Heparin 5000 UNITS/ML 1 mL VIAL SUBCUT SCH ×3 (05:58→20:58)
[2020-05-25 06:02] LABS: Calcium 9.8 mg/dL (8.6-10.3); EGFR African American 43.2 (>60); EGFR Non-African American 35.7 (>60); Potassium 4.1 mmol/L (3.5-5.0)
[2020-05-25] MEDS: Mometasone/Formoter 100/5 MDI INH SCH ×2 (07:16→19:40)
[2020-05-25] MEDS: SPIRIVA Respimat (tiotropium) 2.5 mcg/inh Inhaler INH SCH (07:17)
[2020-05-25] MEDS: Furosemide 40 mg/4 ml IV VIAL IV SLOW PU SCH (09:44)
[2020-05-25] MEDS: Isosorbide Mononit ER 30mg TAB PO SCH (09:48)
[2020-05-25] MEDS: Potassium Chlor 10 meq TAB PO SCH (09:49)
[2020-05-25] MEDS: Cholecalciferol (VIT D3) 1,000 unit TAB PO SCH (09:50)
[2020-05-25 14:49] LABS: Magnesium 2.2 mg/dL (1.9-2.7)
[2020-05-25] MEDS ORDERED: Furosemide 40 mg/4 ml IV VIAL IV SLOW PU ONE (15:00)
[2020-05-26] MEDS: Albuterol HFA INHALER 8 gm MDI INH SCH ×4 (01:37→19:23)
[2020-05-26] MEDS: Heparin 5000 UNITS/ML 1 mL VIAL SUBCUT SCH (05:39)
[2020-05-26 06:38] LABS: Calcium 10.1 mg/dL (8.6-10.3); Potassium 4.7 mmol/L (3.5-5.0)
[2020-05-26 06:42] LABS: BUN/Creatinine Ratio 37.3 (8-20); EGFR African American 42.1 (>60); EGFR Non-African American 34.8 (>60)
[2020-05-26] MEDS: SPIRIVA Respimat (tiotropium) 2.5 mcg/inh Inhaler INH SCH (08:52)
[2020-05-26] MEDS: Mometasone/Formoter 100/5 MDI INH SCH ×2 (08:53→19:19)
[2020-05-26] MEDS ORDERED: Enoxaparin 40 MG/0.4 ML SYR SUBCUT SCH (09:00)
[2020-05-26] MEDS: Enoxaparin 30 MG/0.3 ML SYR SUBCUT SCH (09:51)
[2020-05-26] MEDS: Cholecalciferol (VIT D3) 1,000 unit TAB PO SCH (09:52)
[2020-05-26] MEDS: Isosorbide Mononit ER 30mg TAB PO SCH (09:52)
[2020-05-26] MEDS: Potassium Chlor 10 meq TAB PO SCH (09:52)
[2020-05-27] MEDS: Albuterol HFA INHALER 8 gm MDI INH SCH ×2 (01:23→07:44)
[2020-05-27 05:58] LABS: ABS Lymphocytes 1.8 10^3/ul (1.0-4.8); ABS Neutrophils 6.4 10^3/ul (1.5-7.7); Eosinophil % 0.2 %; Hematocrit 38 % (35-47); Lymphocyte % 19.2 %; Mean Corpuscular HGB Conc 34 g/dL (31-36); Mean Corpuscular Hemoglobin 30 pg (27-31); Mean Corpuscular Volume 89 fL (80-97); Mean Platelet Volume 7.3 fL (7.4-10.4); Platelet Count 203 10^3/uL (150-450); Red Blood Count 4.29 10^6 /uL (3.70-4.87); Red Cell Distribution Width 16 % (10-15); White Blood Count 9.3 10^3/uL (3.5-10.8)
[2020-05-27 06:16] LABS: Anion Gap 8 mmol/L (2-11); BUN/Creatinine Ratio 37.6 (8-20); Blood Urea Nitrogen 59 mg/dL (6-24); CO2 Carbon Dioxide 31 mmol/L (22-32); Chloride 98 mmol/L (101-111); EGFR African American 37.5 (>60); Glucose 95 mg/dL (70-100); Magnesium 2.3 mg/dL (1.9-2.7); Potassium 4.3 mmol/L (3.5-5.0); Sodium 137 mmol/L (135-145)
[2020-05-27] MEDS ORDERED: hydrALAZINE 20 mg/ml 1 ML Vial IV IV SLOW PU ONE (06:21)
[2020-05-27] MEDS: Mometasone/Formoter 100/5 MDI INH SCH ×2 (07:43→19:12)
[2020-05-27] MEDS: SPIRIVA Respimat (tiotropium) 2.5 mcg/inh Inhaler INH SCH (07:43)
[2020-05-27] MEDS: Potassium Chlor 10 meq TAB PO SCH (08:40)
[2020-05-27] MEDS: Cholecalciferol (VIT D3) 1,000 unit TAB PO SCH (08:40)
[2020-05-27] MEDS: Isosorbide Mononit ER 30mg TAB PO SCH (08:40)
[2020-05-27] MEDS: Enoxaparin 30 MG/0.3 ML SYR SUBCUT SCH (08:41)
[2020-05-27 08:48] LABS: ALT 43 U/L (7-52); AST 45 U/L (13-39); Albumin 3.9 g/dL (3.2-5.2); Albumin/Globulin Ratio 1.4 (1-3); Alkaline Phosphatase 67 U/L (34-104); Globulin 2.7 g/dL (2-4); Indirect Bilirubin 0.5 mg/dL (0.3-1.0); Total Protein 6.6 g/dL (6.4-8.9)
[2020-05-27 08:57] LABS: Troponin I 0.04 ng/mL (<0.03)
[2020-05-27 09:31] LABS: Vitamin B12 491 pg/mL (180-914)
[2020-05-28] MEDS ORDERED: hydrALAZINE 20 mg/ml 1 ML Vial IV IV SLOW PU ONE ×2 (03:28→05:48)
[2020-05-28] MEDS ORDERED: hydrALAZINE 20 mg/ml 1 ML Vial IV ONE (05:51)
[2020-05-28 06:19] LABS: ABS Lymphocytes 1.9 10^3/ul (1.0-4.8); ABS Monocytes 0.9 10^3/ul (0-0.8); ABS Neutrophils 5.7 10^3/ul (1.5-7.7); Eosinophil % 0.4 %; Hematocrit 40 % (35-47); Hemoglobin 13.3 g/dL (12.0-16.0); Lymphocyte % 22.3 %; Mean Corpuscular HGB Conc 33 g/dL (31-36); Mean Corpuscular Hemoglobin 30 pg (27-31); Mean Corpuscular Volume 90 fL (80-97); Mean Platelet Volume 7.7 fL (7.4-10.4); Platelet Count 222 10^3/uL (150-450); Red Blood Count 4.49 10^6 /uL (3.70-4.87); Red Cell Distribution Width 16 % (10-15); White Blood Count 8.6 10^3/uL (3.5-10.8)
[2020-05-28 06:36] LABS: BUN/Creatinine Ratio 42.2 (8-20); Calcium 10.2 mg/dL (8.6-10.3); EGFR African American 44.7 (>60); EGFR Non-African American 36.9 (>60); Magnesium 2.5 mg/dL (1.9-2.7); Potassium 4.5 mmol/L (3.5-5.0)
[2020-05-28] MEDS: SPIRIVA Respimat (tiotropium) 2.5 mcg/inh Inhaler INH SCH (08:20)
[2020-05-28] MEDS: Mometasone/Formoter 100/5 MDI INH SCH ×2 (08:21→20:02)
[2020-05-28] MEDS: Cholecalciferol (VIT D3) 1,000 unit TAB PO SCH (08:50)
[2020-05-28] MEDS: Isosorbide Mononit ER 30mg TAB PO SCH (08:50)
[2020-05-28] MEDS: Potassium Chlor 10 meq TAB PO SCH (08:50)
[2020-05-28] MEDS: Enoxaparin 30 MG/0.3 ML SYR SUBCUT SCH (10:48)
[2020-05-29] MEDS ORDERED: hydrALAZINE 20 mg/ml 1 ML Vial IV IV SLOW PU ONE (04:50)
[2020-05-29 06:57] LABS: ABS Basophils 0.1 10^3/ul (0-0.2); ABS Eosinophils 0.1 10^3/ul (0-0.6); ABS Lymphocytes 2.2 10^3/ul (1.0-4.8); ABS Monocytes 0.9 10^3/ul (0-0.8); ABS Neutrophils 6.6 10^3/ul (1.5-7.7); Hematocrit 39 % (35-47); Lymphocyte % 21.8 %; Mean Corpuscular HGB Conc 33 g/dL (31-36); Mean Corpuscular Hemoglobin 30 pg (27-31); Mean Corpuscular Volume 89 fL (80-97); Mean Platelet Volume 7.4 fL (7.4-10.4); Platelet Count 232 10^3/uL (150-450); Red Blood Count 4.37 10^6 /uL (3.70-4.87); Red Cell Distribution Width 16 % (10-15); White Blood Count 9.9 10^3/uL (3.5-10.8)
[2020-05-29 07:16] LABS: BUN/Creatinine Ratio 42.7 (8-20); Calcium 10.5 mg/dL (8.6-10.3); EGFR African American 41.8 (>60); EGFR Non-African American 34.6 (>60); Magnesium 2.3 mg/dL (1.9-2.7); Potassium 4.6 mmol/L (3.5-5.0)
[2020-05-29] MEDS: Cholecalciferol (VIT D3) 1,000 unit TAB PO SCH (08:12)
[2020-05-29] MEDS: Potassium Chlor 10 meq TAB PO SCH (08:13)
[2020-05-29] MEDS ORDERED: Ondansetron 4 mg VIAL 2 MG/ML 2 ml VIAL IV PRN (08:33)
[2020-05-29] MEDS: Mometasone/Formoter 100/5 MDI INH SCH ×2 (08:43→20:26)
[2020-05-29] MEDS: SPIRIVA Respimat (tiotropium) 2.5 mcg/inh Inhaler INH SCH (08:43)
[2020-05-29] MEDS: Enoxaparin 30 MG/0.3 ML SYR SUBCUT SCH (10:05)
[2020-05-29] MEDS ORDERED: Isosorbide Mononit ER 60mg TAB PO SCH (21:00)
[2020-05-29] MEDS ORDERED: Isosorbide Mononit ER 30mg TAB PO SCH (21:00)
[2020-05-30] MEDS: Mometasone/Formoter 100/5 MDI INH SCH (07:53)
[2020-05-30] MEDS: SPIRIVA Respimat (tiotropium) 2.5 mcg/inh Inhaler INH SCH (07:53)
[2020-05-30 07:54] VITALS: BP 137/59
[2020-05-30] MEDS: Cholecalciferol (VIT D3) 1,000 unit TAB PO SCH (08:59)
[2020-05-30] MEDS: Potassium Chlor 10 meq TAB PO SCH (08:59)
[2020-05-30] MEDS: Enoxaparin 30 MG/0.3 ML SYR SUBCUT SCH (09:03)
[2020-05-30 09:40] LABS: ABS Eosinophils 0.2 10^3/ul (0-0.6); ABS Lymphocytes 2.2 10^3/ul (1.0-4.8); ABS Neutrophils 5.4 10^3/ul (1.5-7.7); Eosinophil % 2.6 %; Hematocrit 36 % (35-47); Hemoglobin 12.1 g/dL (12.0-16.0); Lymphocyte % 24.7 %; Mean Corpuscular HGB Conc 33 g/dL (31-36); Mean Corpuscular Hemoglobin 30 pg (27-31); Mean Corpuscular Volume 90 fL (80-97); Mean Platelet Volume 7.1 fL (7.4-10.4); Platelet Count 250 10^3/uL (150-450); Red Blood Count 4.03 10^6 /uL (3.70-4.87); Red Cell Distribution Width 16 % (10-15); White Blood Count 8.8 10^3/uL (3.5-10.8)
[2020-05-30 09:56] LABS: Calcium 9.8 mg/dL (8.6-10.3); EGFR African American 39.6 (>60); EGFR Non-African American 32.7 (>60); Potassium 4.5 mmol/L (3.5-5.0)
== END 2020-05-30 12:30 | disposition home or self-care (01) | DRG 291 ==
LOC: ED 13:37 → MED 18:22
PROVIDERS: ADMIT Hospitalist; ATTEND Internal Medicine